=== PATIENT | female | born 1980 | race Caucasian/White ===

== ENCOUNTER 2018-10-18 05:30 | Observation (INO) | payer BC, OTHER ==
[2018-10-17 15:21] LABS: BASOPHILS % 0.6 % (0.0-1.0); EOSINOPHILS # (AUTO) 0.3 (0.0-0.4); HEMOGLOBIN 12.7 g/dL (12.0-16.0); LYMPHOCYTES # (AUTO) 1.6 (1.0-3.2); LYMPHOCYTES % 22.3 % (18.0-39.1); MEAN CORPUSCULAR HGB CONC 32.6 g/dL (31-35); MONOCYTES # (AUTO) 0.8 (0.2-0.8); MONOCYTES % 11.2 % (4.4-11.3); NEUTROPHILS # (AUTO) 4.4 (2.1-6.9); NEUTROPHILS % 61.3 % (38.7-80.0); PLATELET COUNT 272 x10e3/uL (140-360); RED BLOOD COUNT 4.24 x10e6/uL (3.6-5.1); RED CELL DISTRIBUTION WIDTH 13.5 % (11.7-14.4)
[2018-10-17 15:36] LABS: INR 0.92; PROTHROMBIN TIME 12.9 seconds (11.9-14.5)
[2018-10-17 15:37] LABS: PARTIAL THROMBOPLASTIN TIME 31.9 seconds (23.8-35.5)
[2018-10-17 15:45] LABS: ANION GAP 11.9 mmol/L (8-16); BLOOD UREA NITROGEN 12 mg/dL (7-26); BUN/CREATININE RATIO 17 (6-25); CALCIUM 9.1 mg/dL (8.4-10.2); CARBON DIOXIDE 24 mmol/L (22-29); CHLORIDE 105 mmol/L (98-107); CREATININE, SERUM 0.72 mg/dL (0.57-1.11); EST GLOMERULAR FILTRATION RATE > 60 ML/MIN (60-); GLUCOSE 76 mg/dL (74-118); POTASSIUM 3.9 mmol/L (3.5-5.1); SODIUM 137 mmol/L (136-145)
--- NOTE | 2018-10-17 16:14 | Diagnostic Imaging Report ---
EXAMINATION: PA and lateral views of the chest. COMPARISON: None CLINICAL HISTORY: Preadmission radiograph, C-spine herniation DISCUSSION: Lines/tubes: None. Lungs: The lungs are well inflated and clear. No pneumonia or pulmonary edema. Pleura: There is no pleural effusion or pneumothorax. Heart and mediastinum: The cardiomediastinal silhouette is normal. Bones and soft tissues: No acute bony abnormalities. IMPRESSION: No acute cardiopulmonary abnormalities. Signed by: Dr. Diego Hernandez M.D. on 10/17/2018 4:10 PM
[2018-10-18] VITALS (7 sets, daily range): BP systolic 99–111; BP diastolic 62–68
[~2018-10-18] VITALS: Ht 162.6 cm; Wt 74.1 kg
[~2018-10-18 05:30] MED LIST: CARVEDILOL12.5 MG PO; ENTRESTO; NORTRIPTYLINE H10 MG; SUMATRIPTAN SUC25 MG PO
--- OUTSIDE RECORDS SUMMARY | 2018-10-18 05:59 | XMS REPORT | Continuity of Care Document ---
Author Author [facility] Organization [facility] Address Unknown Phone Unavailable Care Team Providers Care Instruction Dean Name Role Phone [employer] Unavailable Unavailable Problems Problem Status Onset Date Classification Date Reported Comments Source Perisigmoiditis (disorder) Resolved 06/28/2016 Problem 04/20/2018 [facility] KUB Active 06/21/2016 [facility] H54.7 - UNSPECIFIED VISUAL LOSS M54.2 - Active 09/02/2015 [facility] KIDNEY STONESKUB W/MAHOGANY Active 07/28/2011 [facility] STONES W/ TOMOS Active 05/11/2011 [facility] INTRACTABLE PAIN, ANOREXIA, NAUSEA Active 04/27/2011 [facility] FLANK PAIN Active 04/27/2011 [facility] INTRACTABLE PAIN, ANOREXIA, NAUSEA, ACUTE HYDRONEPROSIS Active 04/27/2011 [facility] KIDNEY STONEWITH MAHOGANY Active 03/01/2011 [facility] KIDNEY STONEWITH MAHOGANY. Active 03/01/2011 [facility] RENAL COLIC, HYDRONEPHROSIS Active 02/12/2011 [facility] BACK PAIN Active 02/12/2011 [facility] RENAL STONE, LT 592.0/CPT 57442 Active 11/25/2010 [facility] Acute pyelonephritis Active Problem 07/30/2011 [facility] Abdominal bloating (finding) Active Problem 04/20/2018 [facility] Acute pyelonephritis (disorder) Active Problem 04/20/2018 [facility] Anxiety (finding) Active Problem 04/20/2018 [facility] Epilepsy (disorder) Resolved Problem 04/20/2018 [facility] Fatigue (finding) Active Problem 04/20/2018 [facility] Kidney stone (disorder) Resolved Problem 04/20/2018 [facility] Mitral valve prolapse (disorder) Active Problem 04/20/2018 [facility] Depressive disorder (disorder) Active Problem 04/20/2018 [facility] Persistent insomnia (disorder) Active Problem 04/20/2018 [facility] Raynaud's disease (disorder) Active Problem 04/20/2018 [facility] Refractory migraine without aura (disorder) Active Problem 04/20/2018 [facility] 592.0 Active [facility] RENAL Active [facility] PYELONEPHRITIS NOS Active [facility] Medications Medication Details Route Status Patient Instructions Ordering Provider Order Date Source SUMAtriptan 50 mg oral tablet See Instructions, TAKE ONE TABLET BY MOUTH ONCE NEEDED FOR HEADACHE, # 9 tab, 5 Refill(s), Pharmacy: [place] [id number] Active 04/18/2018 [facility] nortriptyline 10 mg oral capsule 10 mg=1 cap, PO, Bedtime, # 90 cap, 3 Refill(s), Pharmacy: [place] [id number] Active 04/18/2018 [facility] carvedilol 12.5 mg oral tablet 12.5 mg=1 tab, PO, BID, 0 Refill(s) Active 04/18/2018 [facility] sacubitril 49 MG / valsartan 51 MG Oral Tablet [Entresto] 1 tab, PO, BID, 0 Refill(s) Active 04/18/2018 [facility] Nexium 40 mg, Route: PO, Daily, Start date: 04/29/11 9:00:00, Duration: 30 day, Stop date: 05/28/11 9:00:00 PO No Longer Active Marline 04/29/2011 [facility] Pepcid 20 mg, 1 tab, Route: PO, Drug form: TAB, Q12H, Start date: 04/28/11 21:00:00, Duration: 30 day, Stop date: 05/28/11 9:00:00 PO No Longer Active Jose 04/29/2011 [facility] gentamicin 120 mg, 3 mL, Route: IVPB, [id number], Start date: 04/28/11 17:00:00, Duration: 30 day, Stop date: 05/28/11 5:00:00 IVPB No Longer Active Jose 04/28/2011 [facility] Pyridium 200 mg, 1 tab, Route: PO, Drug form: TAB, BID- Meals, Start date: 04/28/11 17:00:00, Duration: 30 day, Stop date: 05/28/11 8:00:00 PO No Longer Active Jose 04/28/2011 [facility] docusate sodium 100 mg oral capsule 100 mg, 1 cap, Route: PO, Drug form: CAP, BID, Start date: 04/28/11 17:00:00, Duration: 30 day, Stop date: 05/28/11 9:00:00 PO No Longer Active [facility] 04/28/2011 [facility] Rocephin 1 gm, Route: IVPB, Q24H, Start date: 04/28/11 16:00:00, Duration: 30 day, Stop date: 05/27/11 3:00:00 IVPB No Longer Active [facility] 04/28/2011 [facility] Ditropan 5 mg, 1 tab, Route: PO, Drug form: TAB, Q6H, PRN Spasm, Start date: 04/28/11 15:38:00, Duration: 30 day, Stop date: 05/28/11 15:37:00 PO No Longer Active [facility] 04/28/2011 [facility] D5W 1/2NS + KCL 20mEq/L 1000ml (Premix) 1,000 mL 1,000 mL, Rate: 125 ml/hr, Infuse over: 8 hr, Route: IV, Dosing Weight 63.636 kg, Total Volume: 1,000, Start date: 04/28/11 15:38:00, Duration: 30 day, Stop date: 05/28/11 15:37:00 IV No Longer Active [facility] 04/28/2011 [facility] Benadryl 25 mg, 0.5 mL, Route: IM, Drug form: INJ, Bedtime, PRN Insomnia, Start date: 04/28/11 15:31:00, Duration: 30 day, Stop date: 05/28/11 15:30:00 IM No Longer Active [facility] 04/28/2011 [facility] Benadryl 25 mg, 0.5 mL, Route: IVP, Drug form: INJ, Bedtime, PRN Insomnia, Start date: 04/28/11 15:30:00, Duration: 30 day, Stop date: 05/28/11 15:29:00 IVP No Longer Active [facility] 04/28/2011 [facility] acetaminophen-hydrocodone 325 mg-7.5 mg oral tablet 1 tab, Route: PO, Drug Form: TAB, Q4H, PRN Pain, Start date: 04/28/11 15:29:00, Duration: 30 day, Stop date: 05/28/11 15:28:00 PO No Longer Active Marshall 04/28/2011 [facility] morphine Sulfate 3 mg, 1.5 mL, Route: IV, Drug form: INJ, Q1H, PRN Pain, Start date: 04/28/11 15:29:00, Duration: 30 day, Stop date: 05/28/11 16:28:00 IV No Longer Active [facility] 04/28/2011 [facility] morphine Sulfate 2 mg, 1 mL, Route: IVP, Drug form: INJ, Q1H, PRN Pain, Start date: 04/28/11 15:28:00, Duration: 30 day, Stop date: 05/28/11 16:27:00 IVP No Longer Active [facility] 04/28/2011 [facility] gentamicin 120 mg, 3 mL, Route: IVPB, ONCE, Start date: 04/28/11 11:00:00, Stop date: 04/28/11 11:00:00 IVPB No Longer Active [facility] 04/28/2011 [facility] Lactated Ringers Injection IV IV, 250 ml/hr, ONCE, Start date: 04/28/11 10:17:00, 500 ml IV No Longer Active Marshall 04/28/2011 [facility] NS 1,000 mL 1,000 mL, Rate: 175 ml/hr, Infuse over: 5.7 hr, Route: IV, Dosing Weight 63.636 kg, Total Volume: 1,000, Start date: 04/28/11 10:16:00, Duration: 30 day, Stop date: 05/28/11 10:15:00 IV No Longer Active [facility] 04/28/2011 [facility] Protonix 40 mg, 1 tab, Route: PO, Drug form: ECTAB, Before Dinner, Start date: 04/28/11 9:42:00, Duration: 30 day, Stop date: 05/27/11 16:30:00 PO No Longer Active [facility] 04/28/2011 [facility] Zofran 4 mg, 2 mL, Route: IVP, Drug form: INJ, Q4H, PRN Nausea, Start date: 04/28/11 7:53:00, Duration: 30 day, Stop date: 05/28/11 7:52:00 IVP No Longer Active Marline 04/28/2011 [facility] Dilaudid 2 mg, 1 mL, Route: IVP, Drug form: INJ, Q4H, PRN Pain, Start date: 04/28/11 7:53:00, Duration: 30 day, Stop date: 05/28/11 7:52:00 IVP No Longer Active Marline 04/28/2011 [facility] Levaquin 500 mg, 100 mL, Route: IVPB, Drug form: INJ, [id number], Start date: 04/28/11 5:00:00, Duration: 30 day, Stop date: 05/27/11 5:00:00 IVPB No Longer Active White 04/28/2011 [facility] Sodium Chloride 0.9% IV 1000 mL 1,000 mL 1,000 mL, Rate: 150 ml/hr, Infuse over: 6.7 hr, Route: IV, Total Volume: 1,000, Start date: 04/28/11 4:34:00, Duration: 30 day, Stop date: 05/28/11 4:33:00 IV No Longer Active White 04/28/2011 [facility] morphine Sulfate 2 mg, 1 mL, Route: IVP, Drug form: INJ, Q3H, PRN Pain Score 4-6, Start date: 04/28/11 4:34:00, Duration: 30 day, Stop date: 05/28/11 4:33:00 IVP No Longer Active White 04/28/2011 [facility] ceftriaxone 1 gm, Route: IVPB, ONCE, Priority: STAT, Start date: 04/28/11 1:26:00, Stop date: 04/28/11 1:26:00 IVPB No Longer Active Shoshana 04/28/2011 [facility] Dilaudid 0.5 mg, Route: IV, ONCE, Start date: 04/27/11 21:31:00, Stop date: 04/27/11 21:31:00 IV No Longer Active Sarmad 04/28/2011 [facility] Sodium Chloride 0.9% (Bolus) IV 500 mL 500 mL, Rate: 500 ml/hr, Infuse over: 1 hr, Route: IV, Total Volume: 500, Bolus Dose, Priority: STAT, Start date: 04/27/11 19:47:00, Duration: 1 doses or times, Stop date: 04/27/11 20:46:00 IV No Longer Active [facility] 04/28/2011 [facility] hydromorphone 1 mg, Route: IVP, ONCE, Priority: STAT, Start date: 04/27/11 19:46:00, Stop date: 04/27/11 19:46:00 IVP No Longer Active [facility] 04/28/2011 [facility] Saline Flush 0.9% 5 ml, Route: IVP, Drug Form: INJ, PRN, PRN Line Flush, Start date: 04/27/11 19:43:00, Duration: 24 hr, Stop date: 04/28/11 19:42:00 IVP No Longer Active [facility] 04/28/2011 [facility] Pyridium 200 mg, 1 tab, Route: PO, Drug form: TAB, BID, Start date: 02/12/11 17:00:00, Duration: 30 day, Stop date: 03/14/11 9:00:00 PO No Longer Active [facility] 02/12/2011 [facility] Flomax 0.4 mg oral capsule 0.4 mg, 1 cap, PO, Bedtime, 14 cap, Substitution Allowed PO Active [facility] 02/12/2011 [facility] Pyridium 200 mg oral tablet 200 mg, 1 tab, PO, BID, 8 tab, Substitution Allowed PO Active [facility] 02/12/2011 [facility] Vicodin ES 7.5/750 oral tablet 1-2 tabs, PO, Q4H, PRN, 15 tab, for Pain, Substitution Allowed, Maintenance PO Active [facility] 02/12/2011 [facility] oxybutynin 5 mg oral tablet 5 mg, 1 tab, PO, QID, PRN, 15 tab, as needed for urinary discomfort, Substitution Allowed, TAB PO Active Marshall 02/12/2011 [facility] Cipro 250 mg oral tablet 250 mg, 1 tab, PO, Q12H, 10 tab, Substitution Allowed, TAB PO Active Marshall 02/12/2011 [facility] morphine Sulfate 3 mg, 1.5 mL, Route: IV, Drug form: INJ, Q1H, PRN Pain, Start date: 02/12/11 12:34:00, Duration: 30 day, Stop date: 03/14/11 12:33:00 IV No Longer Active [facility] 02/12/2011 [facility] Zofran 4 mg, 2 mL, Route: IVP, Drug form: INJ, Q4H, PRN Nausea, Start date: 02/12/11 12:33:00, Duration: 30 day, Stop date: 03/14/11 12:32:00 IVP No Longer Active [facility] 02/12/2011 [facility] acetaminophen-hydrocodone 325 mg-7.5 mg oral tablet 2 tab, Route: PO, Drug Form: TAB, Q4H, PRN Pain, Start date: 02/12/11 12:33:00, Duration: 30 day, Stop date: 03/14/11 12:32:00 PO No Longer Active Marshall 02/12/2011 [facility] Lactated Ringers Injection IV 1,000 mL 1,000 mL, Rate: 100 ml/hr, Infuse over: 10 hr, Route: IV, Total Volume: 1,000, Start date: 02/12/11 12:33:00, Duration: 30 day, Stop date: 03/14/11 12:32:00 IV No Longer Active [facility] 02/12/2011 [facility] acetaminophen-hydrocodone 325 mg-5 mg oral tablet 2 tab, Route: PO, Drug Form: TAB, Q4H, PRN Pain, Start date: 02/12/11 12:12:00, Duration: 30 day, Stop date: 03/14/11 12:11:00 PO No Longer Active [facility] 02/12/2011 [facility] acetaminophen-hydrocodone 325 mg-5 mg oral tablet 1 tab, Route: PO, Drug Form: TAB, Q4H, PRN Pain, Start date: 02/12/11 12:11:00, Duration: 30 day, Stop date: 03/14/11 12:10:00 PO No Longer Active [facility] 02/12/2011 [facility] gentamicin 120 mg, Route: IV, ONCE, Start date: 02/12/11 11:42:00, Stop date: 02/12/11 11:42:00 IV No Longer Active [facility] 02/12/2011 [facility] acetaminophen-hydrocodone 500 mg-5 mg oral tablet 2 tab, Route: PO, Drug Form: TAB, Q4H, PRN Pain Score 6-10, Start date: 02/12/11 11:21:00, Duration: 30 day, Stop date: 03/14/11 11:20:00 PO No Longer Active [facility] 02/12/2011 [facility] naloxone 0.04 mg, 0.1 mL, Route: IVP, Drug form: INJ, Q2MIN, PRN Narcotic Reversal, Start date: 02/12/11 11:21:00, Duration: 8 doses or times, Stop date: Limited # of times IVP No Longer Active [facility] 02/12/2011 [facility] morphine Sulfate 2 mg, 1 mL, Route: IVP, Drug form: INJ, Q5Min, PRN Pain Score 4-6, Start date: 02/12/11 11:21:00, Duration: 8 doses or times, Stop date: Limited # of times IVP No Longer Active [facility] 02/12/2011 [facility] hydromorphone 0.5 mg, 0.5 mL, Route: IVP, Drug form: SOLN, Q5Min, PRN Pain Score 4-6, Start date: 02/12/11 11:21:00, Duration: 5 doses or times, Stop date: Limited # of times IVP No Longer Active [facility] 02/12/2011 [facility] fentanyl 25 microgram, 0.5 mL, Route: IVP, Drug form: INJ, Q5Min, PRN Pain Score 4-6, Start date: 02/12/11 11:21:00, Duration: 4 doses or times, Stop date: Limited # of times IVP No Longer Active [facility] 02/12/2011 [facility] flumazenil 0.2 mg, 2 mL, Route: IVP, Drug form: INJ, PRN, PRN Other -See Comment, Initial dose, Start date: 02/12/11 11:21:00, Duration: 30 day, Stop date: 03/14/11 11:20:00 IVP No Longer Active [facility] 02/12/2011 [facility] ondansetron 4 mg, 2 mL, Route: IVP, Drug form: INJ, ONCE, PRN Nausea & Vomiting, Start date: 02/12/11 11:21:00 IVP No Longer Active [facility] 02/12/2011 [facility] ceftriaxone 1 gm, Route: IVPB, ONCE, Priority: STAT, Start date: 02/12/11 8:03:00, Stop date: 02/12/11 8:03:00 IVPB No Longer Active [facility] 02/12/2011 [facility] Saline Flush 0.9% 5 ml, Route: IVP, Drug Form: INJ, PRN, PRN Line Flush, Start date: 02/12/11 8:03:00, Duration: 30 day, Stop date: 03/14/11 8:02:00 IVP No Longer Active [facility] 02/12/2011 [facility] morphine Sulfate 2 mg, 1 mL, Route: IVP, Drug form: INJ, Q3H, PRN Pain Score 4-6, Start date: 02/12/11 8:03:00, Duration: 30 day, Stop date: 03/14/11 8:02:00 IVP No Longer Active [facility] 02/12/2011 [facility] Sodium Chloride 0.45% IV 1,000 mL 1,000 mL 1,000 mL, Rate: 100 ml/hr, Infuse over: 10 hr, Route: IV, Total Volume: 1,000, Start date: 02/12/11 8:03:00, Duration: 30 day, Stop date: 03/14/11 8:02:00 IV No Longer Active [facility] 02/12/2011 [facility] ondansetron 4 mg, 2 mL, Route: IVP, Drug form: INJ, Q6H, PRN Nausea & Vomiting, Start date: 02/12/11 8:03:00, Duration: 30 day, Stop date: 03/14/11 8:02:00 IVP No Longer Active [facility] 02/12/2011 [facility] Rocephin 1 g/ NS (NaCl 0.9%) 50 mL IV solution 1 gm, Route: IVPB, Drug form: PDR/INJ, [id number], Start date: 02/12/11 7:00:00, Duration: 30 day, Stop date: 03/13/11 7:00:00 IVPB No Longer Active [facility] 02/12/2011 [facility] morphine Sulfate 4 mg, 2 mL, Route: IVP, Drug form: INJ, ONCE, Priority: STAT, Start date: 02/12/11 5:49:00, Stop date: 02/12/11 5:49:00 IVP No Longer Active [facility] 02/12/2011 [facility] ceftriaxone 1 gm, Route: IVPB, Drug form: PDR/INJ, ONCE, Priority: STAT, Start date: 02/12/11 5:01:00, Stop date: 02/12/11 5:01:00 IVPB No Longer Active [facility] 02/12/2011 [facility] hydromorphone 1 mg, Route: IVP, ONCE, Priority: STAT, Start date: 02/12/11 4:01:00, Stop date: 02/12/11 4:01:00 IVP No Longer Active [facility] 02/12/2011 [facility] Sodium Chloride 0.9% (Bolus) IV 1000 mL 1,000 mL, Rate: 1,000 ml/hr, Infuse over: 1 hr, Route: IV, Total Volume: 1,000, Bolus Dose, Priority: STAT, Start date: 02/12/11 3:24:00, Duration: 1 doses or times, Stop date: 02/12/11 4:23:00 IV No Longer Active [facility] 02/12/2011 [facility] Saline Flush 0.9% 5 ml, Route: IVP, Drug Form: INJ, PRN, PRN Line Flush, Start date: 02/12/11 3:24:00, Duration: 24 hr, Stop date: 02/13/11 3:23:00 IVP No Longer Active [facility] 02/12/2011 [facility] Zofran 4 mg, Route: IVP, Drug form: INJ, ONCE, Priority: STAT, Start date: 02/12/11 3:24:00, Stop date: 02/12/11 3:24:00 IVP No Longer Active [facility] 02/12/2011 [facility] hydromorphone 1 mg, Route: IVP, ONCE, Priority: STAT, Start date: 02/12/11 3:23:00, Stop date: 02/12/11 3:23:00 IVP No Longer Active [facility] 02/12/2011 [facility] oxybutynin 5 mg oral tablet 5 mg, 1 tab, BID, Substitution Allowed No Longer Active 02/12/2011 [facility] Cipro 500 mg oral tablet 500 mg, 1 tab, PO, BID, 10 tab, Substitution Allowed PO No Longer Active 02/12/2011 [facility] Vicodin ES 7.5/750 oral tablet 1 tab, PO, Q4-6H, PRN, 24 tab, for Pain, Substitution Allowed, Maintenance PO No Longer Active 02/12/2011 [facility] Pyridium 100 mg oral tablet 100 mg, 1 tab, PO, TID, PRN, 6 tab, Dysuria, Substitution Allowed PO No Longer Active 02/12/2011 [facility] Ancef 1 gm, Route: IVPB, ONCALL, Start date: 12/09/10 13:00:00, Duration: 30 day, Stop date: 01/08/11 11:59:00 IVPB No Longer Active [facility] 12/09/2010 [facility] gentamicin 120 mg, 100 mL, Route: IVPB, Drug form: INJ, ONCE, Start date: 12/09/10 12:13:00, Stop date: 12/09/10 12:13:00 IVPB No Longer Active [facility] 12/09/2010 [facility] lidocaine 1% 0.5 mL, Route: SUB-Q, Drug Form: INJ, ONCALL, Start date: 12/09/10 12:00:00, Duration: 1 doses or times SUB-Q No Longer Active [facility] 12/09/2010 [facility] Lactated Ringers Injection IV 1,000 mL 1,000 mL, Rate: 25 ml/hr, Infuse over: 40 hr, Route: IV, Total Volume: 1,000, Start date: 12/09/10 11:48:00, Duration: 30 day, Stop date: 01/08/11 11:47:00 IV No Longer Active [facility] 12/09/2010 [facility] acetaminophen-hydrocodone 500 mg-5 mg oral tablet 1 tab, PO, Daily, PRN, Pain, Substitution Allowed, Maintenance, TAB PO Active 12/02/2010 [facility] Treximet oral tablet 1 tab, PO, PRN, Substitution Allowed, Maintenance, Only taken for migraines., TABOnly taken for migraines. PO Active 12/02/2010 [facility] Allergies, Adverse Reactions, Alerts Substance Category Reaction Severity Reaction type Status Date Reported Comments Source Latex Assertion Drug allergy Active [facility] Immunizations No Data Provided for This Section Results Order Name Results Value Reference Range Date Interpretation Comments Source Microbiology Culture: Urine 04/28/2011 [facility] Microbiology Culture: Urine 04/28/2011 [facility] CHEMISTRY U Preg Negative (04/27/2011 18:50:00) Negative 04/28/2011 Normal [facility] URINALYSIS UA RBC 6-10 /HPF *ABN* (04/27/2011 18:50:00) 0 - 2 04/28/2011 ABN [facility] URINALYSIS UA Bacteria Few /HPF (04/27/2011 18:50:00) None Seen 04/28/2011 Normal [facility] URINALYSIS UA Amorph Haley Many /HPF *ABN* (04/27/2011 18:50:00) None Seen 04/28/2011 ABN [facility] URINALYSIS UA Urobilinogen 0.2 0.1 - 1.0 04/28/2011 [facility] URINALYSIS UA Blood Moderate *ABN* (04/27/2011 18:50:00) Negative 04/28/2011 ABN [facility] URINALYSIS UA Nitrite Negative (04/27/2011 18:50:00) Negative 04/28/2011 [facility] URINALYSIS UA Sq Epi Few /LPF (04/27/2011 18:50:00) Few 04/28/2011 Normal [facility] URINALYSIS UA Leuk Est Negative (04/27/2011 18:50:00) Negative 04/28/2011 Normal [facility] URINALYSIS UA WBC None Seen (04/27/2011 18:50:00) None Seen 04/28/2011 Normal [facility] URINALYSIS UA Ketones Negative *NA* (04/27/2011 18:50:00) Negative 04/28/2011 NA [facility] URINALYSIS UA Bili Negative *NA* (04/27/2011 18:50:00) Negative 04/28/2011 [facility] URINALYSIS UA Protein Negative (04/27/2011 18:50:00) Negative 04/28/2011 Normal [facility] URINALYSIS UA pH 7.5 5.0 - 8.0 04/28/2011 Normal [facility] URINALYSIS UA Glucose Negative (04/27/2011 18:50:00) Negative 04/28/2011 Normal [facility] URINALYSIS UA Turbidity Cloudy *ABN* (04/27/2011 18:50:00) Clear 04/28/2011 [facility]N [facility] URINALYSIS UA Color Yellow *NA* (04/27/2011 18:50:00) Yellow 04/28/2011 NA [facility] URINALYSIS UA Spec Grav 1.015 <=1.030 04/28/2011 Normal [facility] CHEMISTRY Globulin 3.9 2.0 - 4.0 04/27/2011 Normal [facility] CHEMISTRY A/G Ratio 1.1 0.7 - 1.6 04/27/2011 Normal [facility] CHEMISTRY AGAP 12.6 10.0 - 20.0 04/27/2011 Normal [facility] CHEMISTRY B/C Ratio 17 6 - 25 04/27/2011 Normal [facility] CHEMISTRY Total Protein 8.1 6.4 - 8.4 04/27/2011 Normal [facility] CHEMISTRY Albumin Lvl 4.2 3.5 - 5.0 04/27/2011 Normal [facility] CHEMISTRY CO2 25 24 - 32 04/27/2011 Normal [facility] CHEMISTRY Calcium Lvl 8.5 8.5 - 10.5 04/27/2011 Normal [facility] CHEMISTRY ALT 22 0 - 65 04/27/2011 Normal [facility] CHEMISTRY Alk Phos 92 39 - 136 04/27/2011 Normal [facility] CHEMISTRY Sodium Lvl 138 135 - 145 04/27/2011 Normal [facility] CHEMISTRY Potassium Lvl 3.6 3.5 - 5.1 04/27/2011 Normal [facility] CHEMISTRY Creatinine Lvl 0.9 0.5 - 1.4 04/27/2011 Normal [facility] CHEMISTRY Chloride Lvl 104 95 - 109 04/27/2011 Normal [facility] CHEMISTRY Bili Total 0.3 0.2 - 1.3 04/27/2011 Normal [facility] CHEMISTRY AST 16 0 - 37 04/27/2011 Normal [facility] CHEMISTRY Glucose Lvl 124 04/27/2011 NA <sup>1</sup>Interpretive Data: Reference Ranges : 0 - 7 days : 41 - 90 mg/dL 7 days - 150 yrs : 70 - 99 mg/dL (fasting), based on the clinical recommendations of the [employer] [employer]. [facility] CHEMISTRY BUN 15 7 - 22 04/27/2011 Normal [facility] CHEMISTRY Lipase Lvl 184 73 - 393 04/27/2011 Normal [facility] HEMATOLOGY Hct 40.7 36.0 - 48.0 04/27/2011 Normal [facility] HEMATOLOGY RBC 4.59 4.20 - 5.40 04/27/2011 Normal [facility] HEMATOLOGY MCV 88.5 81.0 - 99.0 04/27/2011 Normal [facility] HEMATOLOGY Hgb 13.5 12.0 - 16.0 04/27/2011 Normal [facility] HEMATOLOGY MCHC 33.1 32.0 - 36.0 04/27/2011 Normal [facility] HEMATOLOGY MCH 29.3 27.0 - 31.0 04/27/2011 Normal [facility] HEMATOLOGY RDW 13.7 11.5 - 14.5 04/27/2011 Normal [facility] HEMATOLOGY Platelet 246 133 - 450 04/27/2011 Normal [facility] HEMATOLOGY MPV 10.2 7.4 - 10.4 04/27/2011 Normal [facility] HEMATOLOGY WBC 18.6 3.7 - 10.4 04/27/2011 HI [facility] HEMATOLOGY RBC Morph Normal (04/27/2011 15:45:00) 04/27/2011 Normal [facility] HEMATOLOGY Plt Morph Normal (04/27/2011 15:45:00) 04/27/2011 Normal [facility] HEMATOLOGY Monocytes 4.3 2.0 - 12.0 04/27/2011 Normal [facility] HEMATOLOGY Segs 91.0 45.0 - 75.0 04/27/2011 [facility] HEMATOLOGY Lymphocytes 4.6 20.0 - 40.0 04/27/2011 LOW [facility] HEMATOLOGY Lymphocytes # 0.9 1.0 - 5.5 04/27/2011 LOW [facility] HEMATOLOGY Monocytes # 0.8 0.0 - 0.8 04/27/2011 Normal [facility] HEMATOLOGY Segs-Bands # 16.9 1.5 - 8.1 04/27/2011 [facility] HEMATOLOGY Eosinophils 0.1 0.0 - 4.0 04/27/2011 Normal [facility] HEMATOLOGY Basophils 0.0 0.0 - 1.0 04/27/2011 Normal [facility] HEMATOLOGY Basophils # 0.0 0.0 - 0.2 04/27/2011 Normal [facility] HEMATOLOGY Eosinophils # 0.0 0.0 - 0.5 04/27/2011 Normal [facility] CHEMISTRY U Preg Negative (03/01/2011 15:42:00) Negative 03/01/2011 Normal [facility] CHEMISTRY U Preg Negative (02/12/2011 03:49:00) Negative 02/12/2011 Normal [facility] URINALYSIS UA Nitrite Positive *ABN* (02/12/2011 03:49:00) Negative 02/12/2011 ABN [facility] URINALYSIS UA Leuk Est Trace *ABN* (02/12/2011 03:49:00) Negative 02/12/2011 ABN [facility] URINALYSIS UA Urobilinogen 1.0 0.1 - 1.0 02/12/2011 Normal [facility] URINALYSIS UA Blood Large *ABN* (02/12/2011 03:49:00) Negative 02/12/2011 ABN [facility] URINALYSIS UA Bili Negative (02/12/2011 03:49:00) Negative 02/12/2011 Normal [facility] URINALYSIS UA Protein 100 mg/dL *ABN* (02/12/2011 03:49:00) Negative 02/12/2011 ABN [facility] URINALYSIS UA pH 7.0 5.0 - 8.0 02/12/2011 Normal [facility] URINALYSIS UA Glucose 100 mg/dL *ABN* (02/12/2011 03:49:00) Negative 02/12/2011 [facility] URINALYSIS UA Spec Grav 1.025 <=1.030 02/12/2011 Normal [facility] URINALYSIS UA Ketones Negative *NA* (02/12/2011 03:49:00) Negative 02/12/2011 NA [facility] URINALYSIS UA Turbidity Turbid *ABN* (02/12/2011 03:49:00) Clear 02/12/2011 ABN [facility] URINALYSIS UA Color Yellow *NA* (02/12/2011 03:49:00) Yellow 02/12/2011 NA [facility] URINALYSIS UA Bacteria Few /HPF (02/12/2011 03:49:00) None Seen 02/12/2011 Normal [facility] URINALYSIS UA RBC >100 /HPF *ABN* (02/12/2011 03:49:00) 0 - 2 02/12/2011 ABN [facility] URINALYSIS UA WBC 3-5 /HPF (02/12/2011 03:49:00) None Seen 02/12/2011 Normal [facility] URINALYSIS UA Sq Epi Few /LPF (02/12/2011 03:49:00) Few 02/12/2011 Normal [facility] URINALYSIS Micro? Performed (02/12/2011 03:49:00) 02/12/2011 Normal [facility] Microbiology Culture: Urine 02/12/2011 [facility] CHEMISTRY AST 17 0 - 37 02/12/2011 Normal [facility] CHEMISTRY Bili Total 0.3 0.2 - 1.3 02/12/2011 Normal [facility] CHEMISTRY Alk Phos 76 39 - 136 02/12/2011 Normal [facility] CHEMISTRY ALT 24 0 - 65 02/12/2011 Normal [facility] CHEMISTRY Albumin Lvl 3.8 3.5 - 5.0 02/12/2011 Normal [facility] CHEMISTRY Calcium Lvl 8.6 8.5 - 10.5 02/12/2011 Normal [facility] CHEMISTRY Chloride Lvl 102 95 - 109 02/12/2011 Normal [facility] CHEMISTRY Total Protein 7.5 6.4 - 8.4 02/12/2011 Normal [facility] CHEMISTRY CO2 24 24 - 32 02/12/2011 Normal [facility] CHEMISTRY Sodium Lvl 138 135 - 145 02/12/2011 Normal [facility] CHEMISTRY Potassium Lvl 3.7 3.5 - 5.1 02/12/2011 Normal [facility] CHEMISTRY Creatinine Lvl 0.7 0.5 - 1.4 02/12/2011 Normal [facility] CHEMISTRY BUN 10 7 - 22 02/12/2011 Normal [facility] CHEMISTRY Glucose Lvl 119 02/12/2011 NA <sup>1</sup>Interpretive Data: Reference Ranges : 0 - 7 days : 41 - 90 mg/dL 7 days - 150 yrs : 70 - 99 mg/dL (fasting), based on the clinical recommendations of the [place] [employer]. [facility] CHEMISTRY Globulin 3.7 2.0 - 4.0 02/12/2011 Normal [facility] CHEMISTRY AGAP 15.7 10.0 - 20.0 02/12/2011 Normal [facility] CHEMISTRY A/G Ratio 1.0 0.7 - 1.6 02/12/2011 Normal [facility] CHEMISTRY B/C Ratio 14 6 - 25 02/12/2011 Normal [facility] CHEMISTRY Lipase Lvl 135 73 - 393 02/12/2011 Normal [facility] HEMATOLOGY Lymphocytes 13.6 20.0 - 40.0 02/12/2011 LOW [facility] HEMATOLOGY Segs 76.2 45.0 - 75.0 02/12/2011 HI [facility] HEMATOLOGY Monocytes 8.3 2.0 - 12.0 02/12/2011 Normal [facility] HEMATOLOGY Basophils # 0.0 0.0 - 0.2 02/12/2011 Normal [facility] HEMATOLOGY Eosinophils 1.5 0.0 - 4.0 02/12/2011 Normal [facility] HEMATOLOGY Basophils 0.4 0.0 - 1.0 02/12/2011 Normal [facility] HEMATOLOGY Segs-Bands # 9.6 1.5 - 8.1 02/12/2011 [facility] HEMATOLOGY Lymphocytes # 1.7 1.0 - 5.5 02/12/2011 Normal [facility] HEMATOLOGY Monocytes # 1.0 0.0 - 0.8 02/12/2011 HI [facility] HEMATOLOGY Eosinophils # 0.2 0.0 - 0.5 02/12/2011 Normal [facility] HEMATOLOGY MCH 30.2 27.0 - 31.0 02/12/2011 Normal [facility] HEMATOLOGY MCHC 34.7 32.0 - 36.0 02/12/2011 Normal [facility] HEMATOLOGY RDW 13.8 11.5 - 14.5 02/12/2011 Normal [facility] HEMATOLOGY Platelet 242 133 - 450 02/12/2011 Normal [facility] HEMATOLOGY MPV 10.2 7.4 - 10.4 02/12/2011 Normal [facility] HEMATOLOGY Hgb 13.2 12.0 - 16.0 02/12/2011 Normal [facility] HEMATOLOGY Hct 38.1 36.0 - 48.0 02/12/2011 Normal [facility] HEMATOLOGY MCV 87.1 81.0 - 99.0 02/12/2011 Normal [facility] HEMATOLOGY WBC 12.6 3.7 - 10.4 02/12/2011 HI [facility] HEMATOLOGY RBC 4.38 4.20 - 5.40 02/12/2011 Normal [facility] CHEMISTRY U Preg Negative (12/09/2010 05:30:00) ?? >Negative 12/09/2010 Normal [facility] CHEMISTRY S Preg Negative *NA* (12/02/2010 11:20:00) ?? >Negative 12/02/2010 NA [facility] CHEMISTRY AGAP 11.3 10.0 - 20.0 12/02/2010 Normal [facility] CHEMISTRY Calcium Lvl 8.8 8.5 - 10.5 12/02/2010 Normal [facility] CHEMISTRY CO2 28.0 24 - 32 12/02/2010 Normal [facility] CHEMISTRY Glucose Lvl 42.0 12/02/2010 NA <sup>1</sup>Interpretive Data: Reference Ranges : 0 - 7 days : 41 - 90 mg/dL 7 days - 150 yrs : 70 - 99 mg/dL (fasting), based on the clinical recommendations of the [place] [employer]. [facility] CHEMISTRY Potassium Lvl 4.3 3.5 - 5.1 12/02/2010 Normal [facility] CHEMISTRY Chloride Lvl 103.0 95 - 109 12/02/2010 Normal [facility] CHEMISTRY BUN 18.0 7 - 22 12/02/2010 Normal [facility] CHEMISTRY Creatinine Lvl 0.7 0.5 - 1.4 12/02/2010 Normal [facility] CHEMISTRY Sodium Lvl 138.0 135 - 145 12/02/2010 Normal [facility] HEMATOLOGY PT 13.2 12.0 - 14.7 12/02/2010 Normal [facility] HEMATOLOGY INR 1.0 0.85 - 1.17 12/02/2010 Normal <sup>2</sup>Interpretive Data: RECOMMENDED RANGES FOR PROTIME INR: 2.0-3.0 for most medical and surgical thromboembolic states. 2.5-3.5 for artificial heart valves and recurrent embolism. INR SHOULD BE USED ONLY FOR PATIENTS ON STABLE ANTICOAGULANT THERAPY. [facility] HEMATOLOGY PTT 31.6 22.9 - 35.8 12/02/2010 Normal <sup>3</sup>Interpretive Data: Heparin Therapeutic Range: 57 - 92 Seconds [facility] HEMATOLOGY WBC 6.0 3.7 - 10.4 12/02/2010 Normal [facility] HEMATOLOGY MPV 10.6 7.4 - 10.4 12/02/2010 HI [facility] HEMATOLOGY MCH 30.0 27.0 - 31.0 12/02/2010 Normal [facility] HEMATOLOGY MCHC 34.5 32.0 - 36.0 12/02/2010 Normal [facility] HEMATOLOGY Platelet 249.0 133 - 450 12/02/2010 Normal [facility] HEMATOLOGY RDW 13.5 11.5 - 14.5 12/02/2010 Normal [facility] HEMATOLOGY Hgb 13.9 12.0 - 16.0 12/02/2010 Normal [facility] HEMATOLOGY RBC 4.62 4.20 - 5.40 12/02/2010 Normal [facility] HEMATOLOGY Hct 40.2 36.0 - 48.0 12/02/2010 Normal [facility] HEMATOLOGY MCV 87.0 81.0 - 99.0 12/02/2010 Normal [facility] HEMATOLOGY Eosinophils # 0.2 0.0 - 0.5 12/02/2010 Normal [facility] HEMATOLOGY Basophils # 0.1 0.0 - 0.2 12/02/2010 Normal [facility] HEMATOLOGY Monocytes # 0.6 0.0 - 0.8 12/02/2010 Normal [facility] HEMATOLOGY Lymphocytes # 1.5 1.0 - 5.5 12/02/2010 Normal [facility] HEMATOLOGY Segs-Bands # 3.7 1.5 - 8.1 12/02/2010 Normal [facility] HEMATOLOGY Monocytes 10.8 2.0 - 12.0 12/02/2010 Normal [facility] HEMATOLOGY Segs 61.5 45.0 - 75.0 12/02/2010 Normal [facility] HEMATOLOGY Basophils 0.9 0.0 - 1.0 12/02/2010 Normal [facility] HEMATOLOGY Lymphocytes 24.2 20.0 - 40.0 12/02/2010 Normal [facility] HEMATOLOGY Eosinophils 2.6 0.0 - 4.0 12/02/2010 Normal [facility] URINALYSIS UA RBC None Seen (12/02/2010 11:05:00) ?? >0 - 2 12/02/2010 Normal [facility] URINALYSIS UA Bacteria Few /HPF (12/02/2010 11:05:00) ?? >None Seen 12/02/2010 Normal [facility] URINALYSIS UA WBC None Seen (12/02/2010 11:05:00) ?? >None Seen 12/02/2010 Normal [facility] URINALYSIS UA Sq Epi Occasional /LPF (12/02/2010 11:05:00) ?? >Few 12/02/2010 Normal [facility] URINALYSIS Micro? Performed (12/02/2010 11:05:00) ?? 12/02/2010 Normal [facility] URINALYSIS UA Leuk Est Negative (12/02/2010 11:05:00) ?? >Negative 12/02/2010 Normal [facility] URINALYSIS UA Nitrite Negative (12/02/2010 11:05:00) ?? >Negative 12/02/2010 Normal [facility] URINALYSIS UA Urobilinogen 0.2 0.1 - 1.0 12/02/2010 Normal [facility] URINALYSIS UA Blood Negative (12/02/2010 11:05:00) ?? >Negative 12/02/2010 Normal [facility] URINALYSIS UA Ketones Negative mg/dL *NA* (12/02/2010 11:05:00) ?? >Negative 12/02/2010 NA [facility] URINALYSIS UA Glucose Negative mg/dL (12/02/2010 11:05:00) ?? >Negative 12/02/2010 Normal [facility] URINALYSIS UA Bili Negative *NA* (12/02/2010 11:05:00) ?? >Negative 12/02/2010 NA [facility] URINALYSIS UA Spec Grav 1.02 <<=1.030 12/02/2010 Normal [facility] URINALYSIS UA Protein Negative mg/dL (12/02/2010 11:05:00) ?? >Negative 12/02/2010 Normal [facility] URINALYSIS UA pH 6.5 5.0 - 8.0 12/02/2010 Normal [facility] URINALYSIS UA Turbidity Clear (12/02/2010 11:05:00) ?? >Clear 12/02/2010 Normal [facility] URINALYSIS UA Color Yellow *NA* (12/02/2010 11:05:00) ?? >Yellow 12/02/2010 NA [facility] Microbiology Culture: Urine 12/02/2010 [facility] Pathology Reports No Data Provided for This Section Diagnostic Reports Report Value Date Source Abdomen AP DX KUB: 2 linear calculi measuring 8 mm and 5 mm are noted overlying the lower pole the left kidney. There is no other visible urinary tract calculus. Multiple phleboliths in the pelvis are noted. Surgical clips in the gallbladder region are noted. Intrauterine device is noted in the midline which appears horizontally oriented. [id number] 06/21/2016 [facility] Spine cervical wo contrast MRI CERVICAL SPINE MRI WITHOUT CONTRAST: 09/11/2015 TECHNIQUE: Sagittal T1 and T2 weighted images were followed by axial T2-weighted views of the cervical spine without IV contrast. FINDINGS: The cervical cord is normal in size and signal intensity. There is no syrinx. The cerebellar tonsils are normal in position above the level of the foramen magnum. The vertebrae are normal in shape, signal intensity and alignment, other than slight straightening of the cervical spine curvature. The intervertebral disks are desiccated with mild height loss at C5-C6. The prevertebral soft tissues are normal. C2-C3: No abnormality. C3-C4: Minimal disc osteophyte complex. No significant stenosis. C4-C5: No abnormality. C5-C6: Left paracentral disc extrusion measures 4 mm anterior posteriorly and extends up to 3 mm below the level of the disc with superimposed mild diffuse disc osteophyte complexes and minimal annular tearing. This results in [id number] left canal stenosis (AP diameter 8 mm) with moderate left lateral recess narrowing and mild left greater than right neural foraminal narrowing. There is slight contact to the left anterior cord and minimal deformity to the left C6 nerve root. C6-C7: Minimal disc bulge. No significant stenosis. C7-T1: No abnormality. IMPRESSION: Moderate C5-C6 disc extrusion with superimposed disc osteophyte complexes resulting in [id number] left canal stenosis and minimal deformity of the left C6 nerve root in the lateral recess and foramen. 09/11/2015 [facility] Brain wo contrast MRI MRI BRAIN WITHOUT CONTRAST: 09/11/2015 COMPARISON: None. CLINICAL: H54.7 Unspecified visual loss COMMENTS: The volume of the brain is age-appropriate. No evidence of significant white matter changes, hydrocephalus, acute infarct, intracranial hemorrhage, mass, or midline shift is seen. The brainstem and cerebellum are free of signal abnormality. There is no evidence of diffusion restriction. Flow voids at the base of the brain are preserved. The orbits are grossly unremarkable, though no dedicated high-resolution imaging was obtained. The paranasal sinuses and mastoid air cells are well aerated, except for probable mucus retention cyst in the right maxillary sinus. Mild leftward nasal septal deviation and spurring contacts and remodels the left inferior turbinate, which is potential source of headaches in some patients.. IMPRESSION: No acute intracranial abnormality. 09/11/2015 [facility] Consultation Notes No Data Provided for This Section Discharge Summaries No Data Provided for This Section History and Physicals No Data Provided for This Section Vital Signs Vital Sign Value Date Comments Source Weight 69.602 04/18/2018 [facility] BMI Calculated 26.34 04/18/2018 [facility] Height 162.56 cm 04/18/2018 [facility] Systolic (mm Hg) 114 04/18/2018 [facility] Diastolic (mm Hg) 77 04/18/2018 [facility] Heart Rate 80 04/18/2018 [facility] Systolic (mm Hg) 132 04/28/2011 [facility] Diastolic (mm Hg) 85 04/28/2011 [facility] Heart Rate 87 04/28/2011 [facility] Respitory Rate 18 04/28/2011 [facility] Temperature Oral (F) 97.5 F 04/28/2011 [facility] Systolic (mm Hg) 136 04/28/2011 [facility] Diastolic (mm Hg) 86 04/28/2011 [facility] Respitory Rate 18 04/28/2011 [facility] Diastolic (mm Hg) 91 04/28/2011 [facility] Systolic (mm Hg) 136 04/28/2011 [facility] Respitory Rate 14 04/28/2011 [facility] Heart Rate 80 04/28/2011 [facility] Temperature Oral (F) 98.0 F 04/28/2011 [facility] Heart Rate 79 04/28/2011 [facility] Temperature Oral (F) 98.3 F 04/28/2011 [facility] Height 162.56 cm 04/28/2011 [facility] Weight 63.636 04/28/2011 [facility] Heart Rate 75 02/12/2011 [facility] Diastolic (mm Hg) 83 02/12/2011 [facility] Systolic (mm Hg) 129 02/12/2011 [facility] Respitory Rate 20 02/12/2011 [facility] Temperature Oral (F) 98.5 F 02/12/2011 [facility] Temperature Oral (F) 98.1 F 02/12/2011 [facility] Systolic (mm Hg) 142 02/12/2011 [facility] Respitory Rate 20 02/12/2011 [facility] Diastolic (mm Hg) 92 02/12/2011 [facility] Heart Rate 84 02/12/2011 [facility] Systolic (mm Hg) 130 02/12/2011 [facility] Respitory Rate 13 02/12/2011 [facility] Diastolic (mm Hg) 71 02/12/2011 [facility] Heart Rate 74 02/12/2011 [facility] Temperature Oral (F) 98.0 F 02/12/2011 [facility] Weight 59.091 02/12/2011 [facility] Height 162.56 cm 02/12/2011 [facility] Respitory Rate 16.0 12/09/2010 [facility] Diastolic (mm Hg) 64.0 12/09/2010 [facility] Systolic (mm Hg) 122.0 12/09/2010 [facility] Diastolic (mm Hg) 75.0 12/09/2010 [facility] Systolic (mm Hg) 120.0 12/09/2010 [facility] Respitory Rate 19.0 12/09/2010 [facility] Respitory Rate 18.0 12/09/2010 [facility] Diastolic (mm Hg) 67.0 12/09/2010 [facility] Systolic (mm Hg) 115.0 12/09/2010 [facility] Heart Rate 86.0 12/09/2010 [facility] Temperature Oral (F) 97.8 F 12/02/2010 [facility] Heart Rate 88.0 12/02/2010 [facility] Weight 63.636 12/02/2010 [facility] Height 162.56 cm 12/02/2010 [facility] Encounters Location Location Details Encounter Type Encounter Number Reason For Visit Attending Provider ADM Date DC Date Status Source [facility] DS [id number] RENAL STONE, LT 592.0/CPT 45404 SHAN COTTOEN 12/09/2010 12/09/2010 Active [facility] OU [id number] RENAL COLIC, HYDRONEPHROSIS JUAN A JOSE 02/12/2011 02/12/2011 Active [facility] Outpatient [id number] RENAL JUAN A JOSE 03/01/2011 Active [facility] Outpatient [id number] KIDNEY STONEWITH MAHOGANY. JUAN A JOSE 03/16/2011 03/16/2011 Active [facility] Inpatient [id number] INTRACTABLE PAIN, ANOREXIA, NAUSEA, ACUTE HYDRONEPROSIS LAURA ÁLVAREZ 04/28/2011 04/28/2011 Active [facility] Outpatient [id number] 592.0 JUAN A SHERIDAN 05/11/2011 Active [facility] Outpatient [id number] STONES W/ TOMOS JUAN A SHERIDAN 07/28/2011 Active [facility] [id number] Belkis Kofarida 09/11/2015 09/12/2015 [facility] Outpatient [id number] EDEL DION 04/12/2016 Active [facility] Outpatient [id number] Juan A Jose 06/21/2016 06/22/2016 [facility] Outpatient [id number] EDEL DION 06/28/2016 Active [facility] Outpatient [id number] EDEL DION 11/24/2016 Active [facility] Outpatient [id number] EDEL DION 05/25/2017 Active [facility] Pre-Reg [id number] Edel [place] 05/25/2017 05/25/2017 [facility] Outpatient [id number] EDEL DION 04/18/2018 [facility] Outpatient [id number] Edel Dion 04/18/2018 04/19/2018 [facility] Outpatient [id number] EDEL DION 04/19/2019 [facility] Outpatient [id number] KIDNEY STONESKUB W/MAHOGANY JUAN A JOSE Cancel [facility] Procedures Procedure Code Date Perfomer Comments Source Open stone operation on kidney or renal pelvis [id number] 02/21/2008 [facility] Assessment and Plan No Data Provided for This Section Plan of Care No Data Provided for This Section Social History Social History Date Source Social History TypeResponse Substance Abuse Use: None. Employment/School Status: Employed. Highest education level: High school. Alcohol Never Smoking Status Never smoker; Exposure to Tobacco Smoke None; Cigarette Smoking Last 365 Days No; Reg Smoking Cessation Counseling No entered on: 04/18/18 11/24/2016 [facility] Social History TypeResponse Employment/School Status: Employed. Highest education level: High school. Alcohol Never Smoking Status Never smoker; Exposure to Tobacco Smoke None; Cigarette Smoking Last 365 Days No; Reg Smoking Cessation Counseling No 06/07/2016 [facility] No data available for this section 09/12/2015 [facility] Family History No Data Provided for This Section Advance Directives No Data Provided for This Section Functional Status No Data Provided for This Section
--- OUTSIDE RECORDS SUMMARY | 2018-10-18 05:59 | XMS REPORT | CCD ---
Author Author Auto Generated Organization [facility] Address Unknown Phone Unavailable Care Team Providers Care Project Geophysicist Name Role Phone PhilJaylen em CP Unavailable HernandezBhanuh RP Natalya Fong CP Lissette Reyes CP [phone] Jose Sanya Herson CP Majo Ross CP [phone] Placido Johnston CP [phone] Arielle Garibay CP [phone] [employer], Login CP Unavailable Inez Richter CP Unavailable HernandezTammie Juan A CP [phone] Cindy Gonsalez CP Unavailable Tila Edgar CP Unavailable Scott Simpson CP SYSTEM, SYSTEM CP Unavailable Ryan Oliva CP Unavailable El Bess CP Monica Daigle CP Unavailable Tiff Michel CP Unavailable Josie Escobedo CP [phone] Love Hennessy CP Lynette Wong CP Allergies, Adverse Reactions, Alerts Substance Reaction Status Latex ?? Active NKDA Latex?? Canceled Medications Medication Instructions Start Date End Date Status gentamicin 120 mg, 100 mL, Route: IVPB, Drug 12/09/2010 12/09/2010 Completed form: INJ, ONCE, Start date: 12/09/10 12:13:00, Stop date: 12/09/10 12:13:00 Ancef 1 gm, Route: IVPB, ONCALL, Start 12/09/2010 12/09/2010 Completed date: 12/09/10 13:00:00, Duration: 30 day, Stop date: 01/08/11 11:59:00 acetaminophen-hydroc 1 tab, PO, Daily, PRN, Pain, 12/02/2010 ?? Ordered odone 500 mg-5 mg Substitution Allowed, Maintenance, oral tablet TAB Treximet oral tablet 1 tab, PO, PRN, Substitution 12/02/2010 ?? Ordered Allowed, Maintenance, Only taken for migraines., TAB Only taken for migraines. lidocaine 1% 0.5 mL, Route: SUB-Q, Drug Form: 12/09/2010 12/09/2010 Discontinued INJ ONCALL, Start date: 12/09/10 12:00:00, Duration: 1 doses or times Lactated Ringers 1,000 mL, Rate: 25 ml/hr, Infuse 12/09/2010 12/09/2010 Discontinued Injection IV 1,000 over: 40 hr, Route: IV, Total mL Volume: 1,000, Start date: 12/09/10 11:48:00, Duration: 30 day, Stop date: 01/08/11 11:47:00 Vital Signs Most recent to oldest [Reference Range]: 1 2 3 Height 162.56 cm (12/02/2010 10:07:00) ? Temperature Oral [96.4-99.1 DegF] 97.8 DegF (12/02/2010 11:00:00) ? Systolic Blood Pressure [90-140 mmHg] 122 mmHg (12/09/2010 15:00:00) ?? 120 mmHg (12/09/2010 14:30:00) ?? 115 mmHg (12/09/2010 14:15:00) ?? Diastolic Blood Pressure [60-90 mmHg] 64 mmHg (12/09/2010 15:00:00) ?? 75 mmHg (12/09/2010 14:30:00) ?? 67 mmHg (12/09/2010 14:15:00) ?? Respiratory Rate [14-20 BRMIN] 16 BRMIN (12/09/2010 15:00:00) ?? 19 BRMIN (12/09/2010 14:30:00) ?? 18 BRMIN (12/09/2010 14:15:00) ?? Peripheral Pulse Rate [60-100 bpm] 86 bpm (12/09/2010 12:14:00) ?? 88 bpm (12/02/2010 11:00:00) ? Weight 63.636 kg (12/02/2010 10:07:00) ? Results URINALYSIS Most recent to oldest [Reference Range]: 1 UA Turbidity [>Clear] Clear (12/02/2010 11:05:00) ?? UA Color [>Yellow] Yellow *NA* (12/02/2010 11:05:00) ?? UA pH [5.0-8.0] 6.5 (12/02/2010 11:05:00) ?? UA Spec Grav [<<=1.030] 1.020 (12/02/2010 11:05:00) ?? UA Glucose [>Negative mg/dL] Negative mg/dL (12/02/2010 11:05:00) ?? UA Blood [>Negative] Negative (12/02/2010 11:05:00) ?? UA Ketones [>Negative mg/dL] Negative mg/dL *NA* (12/02/2010 11:05:00) ?? UA Protein [>Negative mg/dL] Negative mg/dL (12/02/2010 11:05:00) ?? UA Urobilinogen [0.1-1.0 EU/dL] 0.2 EU/dL (12/02/2010 11:05:00) ?? UA Bili [>Negative] Negative *NA* (12/02/2010 11:05:00) ?? UA Leuk Est [>Negative] Negative (12/02/2010 11:05:00) ?? UA Nitrite [>Negative] Negative (12/02/2010 11:05:00) ?? UA WBC [>None Seen] None Seen (12/02/2010 11:05:00) ?? UA RBC [>0-2] None Seen (12/02/2010 11:05:00) ?? UA Bacteria [>None Seen /HPF] Few /HPF (12/02/2010 11:05:00) ?? UA Sq Epi [>Few /LPF] Occasional /LPF (12/02/2010 11:05:00) ?? Micro? Performed (12/02/2010 11:05:00) ?? CHEMISTRY Most recent to oldest [Reference Range]: 1 Sodium Lvl [135-145 mEq/L] 138 mEq/L (12/02/2010 11:20:00) ?? Potassium Lvl [3.5-5.1 mEq/L] 4.3 mEq/L (12/02/2010 11:20:00) ?? Chloride Lvl [95-109 mEq/L] 103 mEq/L (12/02/2010 11:20:00) ?? CO2 [24-32 mEq/L] 28 mEq/L (12/02/2010 11:20:00) ?? AGAP [10.0-20.0 mEq/L] 11.3 mEq/L (12/02/2010 11:20:00) ?? Creatinine Lvl [0.5-1.4 mg/dL] 0.7 mg/dL (12/02/2010 11:20:00) ?? BUN [7-22 mg/dL] 18 mg/dL (12/02/2010 11:20:00) ?? Glucose Lvl 42 mg/dL 1 *NA* (12/02/2010 11:20:00) ?? Calcium Lvl [8.5-10.5 mg/dL] 8.8 mg/dL (12/02/2010 11:20:00) ?? S Preg [>Negative] Negative *NA* (12/02/2010 11:20:00) ?? U Preg [>Negative] Negative (12/09/2010 05:30:00) ?? 1Interpretive Data: Reference Ranges : 0 - 7 days : 41 - 90 mg/dL7 days - 150 yrs : 70 - 99 mg/dL (fasting), based on the clinical recommendations of the [place] [employer]. HEMATOLOGY Most recent to oldest [Reference Range]: 1 WBC [3.7-10.4 K/CMM] 6.0 K/CMM (12/02/2010 11:20:00) ?? RBC [4.20-5.40 M/CMM] 4.62 M/CMM (12/02/2010 11:20:00) ?? Hgb [12.0-16.0 g/dL] 13.9 g/dL (12/02/2010:) ?? Hct [36.0-48.0 %] 40.2 % (12/02/2010:20:) ?? MCV [81.0-99.0 fL] 87.0 fL (12/02/2010:20:) ?? MCH [27.0-31.0 pg] 30.0 pg (12/02/2010:20:) ?? MCHC [32.0-36.0 g/dL] 34.5 g/dL (12/02/2010:20:) ?? RDW [11.5-14.5 %] 13.5 % (12/02/2010:20:) ?? Platelet [133-450 K/CMM] 249 K/CMM (12/02/2010:20:) ?? MPV [7.4-10.4 fL] 10.6 fL *HI* (12/02/2010:20:) ?? Segs [45.0-75.0 %] 61.5 % (12/02/2010:20:) ?? Lymphocytes [20.0-40.0 %] 24.2 % (12/02/2010:20:) ?? Monocytes [2.0-12.0 %] 10.8 % (12/02/2010:20:) ?? Eosinophils [0.0-4.0 %] 2.6 % (12/02/2010:20:) ?? Basophils [0.0-1.0 %] 0.9 % (12/02/2010:20:) ?? Segs-Bands # [1.5-8.1 K/CMM] 3.7 K/CMM (12/02/2010:20:) ?? Lymphocytes # [1.0-5.5 K/CMM] 1.5 K/CMM (12/02/2010:20:) ?? Monocytes # [0.0-0.8 K/CMM] 0.6 K/CMM (12/02/2010:20:) ?? Eosinophils # [0.0-0.5 K/CMM] 0.2 K/CMM (12/02/2010 11:20:00) ?? Basophils # [0.0-0.2 K/CMM] 0.1 K/CMM (12/02/2010 11:20:00) ?? PT [12.0-14.7 seconds] 13.2 seconds (12/02/2010 11:20:00) ?? INR [0.85-1.17] 1.00 2 (12/02/2010 11:20:00) ?? PTT [22.9-35.8 seconds] 31.6 seconds 3 (12/02/2010 11:20:00) ?? 2Interpretive Data: RECOMMENDED RANGES FOR PROTIME INR: 2.0-3.0 for most medical and surgical thromboembolic states. 2.5-3.5 for artificial heart valves and recurrent embolism.INR SHOULD BE USED ONLY FOR PATIENTS ON STABLE ANTICOAGULANT THERAPY. 3Interpretive Data: Heparin Therapeutic Range: 57 - 92 Seconds Microbiology Reports PROCEDURE:Culture: Urine STATUS: Auth (Verified) BODY SITE: ?? COLLECTED DATE/TIME: 12/02/2010 11:05:00 SOURCE: Urine, Clean Catch FREE TEXT SOURCE: ?? FINAL REPORTS Final Report 3 Or More Organisms Present. Gram Positive Organisms Only. Dulzura Count Not Sign ificant PRELIMINARY REPORTS Preliminary Report No Growth; Holding
--- OUTSIDE RECORDS SUMMARY | 2018-10-18 06:00 | XMS REPORT | CCD ---
Author Author Auto Generated Organization [facility] Address Unknown Phone Unavailable Care Team Providers Care Swing Manager Name Role Phone Sanya Garcia CP Allergies, Adverse Reactions, Alerts Substance Reaction Status Latex Active NKDA Latex Canceled Medications Medication Instructions Start Date End Date Status Cipro 250 mg oral 250 mg, 1 tab, PO, Q12H, 10 tab, 02/12/2011 02/17/2011 Ordered tablet Substitution Allowed, TAB ceftriaxone 1 gm, Route: IVPB, ONCE, Priority: 02/12/2011 02/12/2011 Completed STAT, Start date: 02/12/11 8:03:00, Stop date: 02/12/11 8:03:00 Pyridium 200 mg, 1 tab, Route: PO, Drug 02/12/2011 02/12/2011 Discontinued form: TAB, BID, Start date: 02/12/11 17:00:00, Duration: 30 day, Stop date: 03/14/11 9:00:00 Zofran 4 mg, 2 mL, Route: IVP, Drug form: 02/12/2011 02/12/2011 Discontinued INJ, Q4H, PRN Nausea, Start date: 02/12/11 12:33:00, Duration: 30 day, Stop date: 03/14/11 12:32:00 Saline Flush 0.9% 5 ml, Route: IVP, Drug Form: INJ, 02/12/2011 02/12/2011 Discontinued PRN, PRN Line Flush, Start date: 02/12/11 8:03:00, Duration: 30 day, Stop date: 03/14/11 8:02:00 acetaminophen-hydroc 2 tab, Route: PO, Drug Form: TAB, 02/12/2011 02/12/2011 Discontinued odone 325 mg-7.5 mg Q4H, PRN Pain, Start date: 02/12/11 oral tablet 12:33:00, Duration: 30 day, Stop date: 03/14/11 12:32:00 acetaminophen-hydroc 1 tab, Route: PO, Drug Form: TAB, 02/12/2011 02/12/2011 Discontinued odone 325 mg-7.5 mg Q4H, PRN Pain, Start date: 02/12/11 oral tablet 12:33:00, Duration: 30 day, Stop date: 03/14/11 12:32:00 Lactated Ringers 1,000 mL, Rate: 100 ml/hr, Infuse 02/12/2011 02/12/2011 Discontinued Injection IV 1,000 over: 10 hr, Route: IV, Total mL Volume: 1,000, Start date: 02/12/11 12:33:00, Duration: 30 day, Stop date: 03/14/11 12:32:00 Flomax 0.4 mg oral 0.4 mg, 1 cap, PO, Bedtime, 14 cap, 02/12/2011 Ordered capsule Substitution Allowed morphine Sulfate 2 mg, 1 mL, Route: IVP, Drug form: 02/12/2011 02/12/2011 Discontinued INJ, Q3H, PRN Pain Score 4-6, Start date: 02/12/11 8:03:00, Duration: 30 day, Stop date: 03/14/11 8:02:00 Sodium Chloride 1,000 mL, Rate: 100 ml/hr, Infuse 02/12/2011 02/12/2011 Discontinued 0.45% IV 1,000 mL over: 10 hr, Route: IV, Total 1,000 mL Volume: 1,000, Start date: 02/12/11 8:03:00, Duration: 30 day, Stop date: 03/14/11 8:02:00 ondansetron 4 mg, 2 mL, Route: IVP, Drug form: 02/12/2011 02/12/2011 Discontinued INJ, Q6H, PRN Nausea & Vomiting, Start date: 02/12/11 8:03:00, Duration: 30 day, Stop date: 03/14/11 8:02:00 Pyridium 200 mg oral 200 mg, 1 tab, PO, BID, 8 tab, 02/12/2011 Ordered tablet Substitution Allowed Vicodin ES 7.5/750 1-2 tabs, PO, Q4H, PRN, 15 tab, for 02/12/2011 02/17/2011 Ordered oral tablet Pain, Substitution Allowed, Maintenance Sodium Chloride 0.9% 1,000 mL, Rate: 1,000 ml/hr, Infuse 02/12/2011 02/12/2011 Completed (Bolus) IV 1000 mL over: 1 hr, Route: IV, Total Volume: 1,000, Bolus Dose, Priority: STAT, Start date: 02/12/11 3:24:00, Duration: 1 doses or times, Stop date: 02/12/11 4:23:00 Saline Flush 0.9% 5 ml, Route: IVP, Drug Form: INJ, 02/12/2011 02/12/2011 Discontinued PRN, PRN Line Flush, Start date: 02/12/11 3:24:00, Duration: 24 hr, Stop date: 02/13/11 3:23:00 hydromorphone 1 mg, Route: IVP, ONCE, Priority: 02/12/2011 02/12/2011 Completed STAT, Start date: 02/12/11 3:23:00, Stop date: 02/12/11 3:23:00 acetaminophen-hydroc 2 tab, Route: PO, Drug Form: TAB, 02/12/2011 02/12/2011 Discontinued odone 325 mg-5 mg Q4H, PRN Pain, Start date: 02/12/11 oral tablet 12:12:00, Duration: 30 day, Stop date: 03/14/11 12:11:00 Zofran 4 mg, Route: IVP, Drug form: INJ, 02/12/2011 02/12/2011 Completed ONCE, Priority: STAT, Start date: 02/12/11 3:24:00, Stop date: 02/12/11 3:24:00 acetaminophen-hydroc 1 tab, Route: PO, Drug Form: TAB, 02/12/2011 02/12/2011 Discontinued odone 325 mg-5 mg Q4H, PRN Pain, Start date: 02/12/11 oral tablet 12:11:00, Duration: 30 day, Stop date: 03/14/11 12:10:00 oxybutynin 5 mg oral 5 mg, 1 tab, PO, QID, PRN, 15 tab, 02/12/2011 Ordered tablet as needed for urinary discomfort, Substitution Allowed, TAB Rocephin 1 g/ NS 1 gm, Route: IVPB, Drug form: 02/12/2011 02/12/2011 Discontinued (NaCl 0.9%) 50 mL IV PDR/INJ, [id number], Start date: solution 02/12/11 7:00:00, Duration: 30 day, Stop date: 03/13/11 7:00:00 hydromorphone 1 mg, Route: IVP, ONCE, Priority: 02/12/2011 02/12/2011 Completed STAT, Start date: 02/12/11 4:01:00, Stop date: 02/12/11 4:01:00 gentamicin 120 mg, Route: IV, ONCE, Start 02/12/2011 02/12/2011 Completed date: 02/12/11 11:42:00, Stop date: 02/12/11 11:42:00 acetaminophen-hydroc 2 tab, Route: PO, Drug Form: TAB, 02/12/2011 02/12/2011 Deleted odone 500 mg-5 mg Q4H, PRN Pain Score 6-10, Start oral tablet date: 02/12/11 11:21:00, Duration: 30 day, Stop date: 03/14/11 11:20:00 acetaminophen-hydroc 1 tab, Route: PO, Drug Form: TAB, 02/12/2011 02/12/2011 Deleted odone 500 mg-5 mg Q4H, PRN Pain Score 1-5, Start oral tablet date: 02/12/11 11:21:00, Duration: 30 day, Stop date: 03/14/11 11:20:00 naloxone 0.04 mg, 0.1 mL, Route: IVP, Drug 02/12/2011 02/12/2011 Discontinued form: INJ, Q2MIN, PRN Narcotic Reversal, Start date: 02/12/11 11:21:00, Duration: 8 doses or times, Stop date: Limited # of times morphine Sulfate 2 mg, 1 mL, Route: IVP, Drug form: 02/12/2011 02/12/2011 Discontinued INJ, Q5Min, PRN Pain Score 4-6, Start date: 02/12/11 11:21:00, Duration: 8 doses or times, Stop date: Limited # of times hydromorphone 0.5 mg, 0.5 mL, Route: IVP, Drug 02/12/2011 02/12/2011 Discontinued form: SOLN, Q5Min, PRN Pain Score 4-6, Start date: 02/12/11 11:21:00, Duration: 5 doses or times, Stop date: Limited # of times fentanyl 25 microgram, 0.5 mL, Route: IVP, 02/12/2011 02/12/2011 Discontinued Drug form: INJ, Q5Min, PRN Pain Score 4-6, Start date: 02/12/11 11:21:00, Duration: 4 doses or times, Stop date: Limited # of times flumazenil 0.2 mg, 2 mL, Route: IVP, Drug 02/12/2011 02/12/2011 Discontinued form: INJ, PRN, PRN Other -See Comment, Initial dose, Start date: 02/12/11 11:21:00, Duration: 30 day, Stop date: 03/14/11 11:20:00 ondansetron 4 mg, 2 mL, Route: IVP, Drug form: 02/12/2011 02/12/2011 Discontinued INJ, ONCE, PRN Nausea & Vomiting, Start date: 02/12/11 11:21:00 oxybutynin 5 mg oral 5 mg, 1 tab, BID, Substitution 02/12/2011 02/12/2011 Discontinued tablet Allowed Cipro 500 mg oral 500 mg, 1 tab, PO, BID, 10 tab, 02/12/2011 02/12/2011 Discontinued tablet Substitution Allowed Pyridium 100 mg oral 100 mg, 1 tab, PO, TID, PRN, 6 tab, 02/12/2011 02/12/2011 Discontinued tablet Dysuria, Substitution Allowed Vicodin ES 7.5/750 1 tab, PO, Q4-6H, PRN, 24 tab, for 02/12/2011 02/12/2011 Discontinued oral tablet Pain, Substitution Allowed, Maintenance ceftriaxone 1 gm, Route: IVPB, Drug form: 02/12/2011 02/12/2011 Completed PDR/INJ, ONCE, Priority: STAT, Start date: 02/12/11 5:01:00, Stop date: 02/12/11 5:01:00 morphine Sulfate 4 mg, 2 mL, Route: IVP, Drug form: 02/12/2011 02/12/2011 Completed INJ, ONCE, Priority: STAT, Start date: 02/12/11 5:49:00, Stop date: 02/12/11 5:49:00 morphine Sulfate 3 mg, 1.5 mL, Route: IV, Drug form: 02/12/2011 02/12/2011 Discontinued INJ, Q1H, PRN Pain, Start date: 02/12/11 12:34:00, Duration: 30 day, Stop date: 03/14/11 12:33:00 morphine Sulfate 2 mg, 1 mL, Route: IV, Drug form: 02/12/2011 02/12/2011 Discontinued INJ, Q1H, PRN Pain, Start date: 02/12/11 12:34:00, Duration: 30 day, Stop date: 03/14/11 12:33:00 Vital Signs Most recent to oldest [Reference Range]: 1 2 3 Height 162.56 cm (02/12/2011 03:00:00) Temperature Oral [96.4-99.1 DegF] 98.5 DegF (02/12/2011 16:00:00) 98.1 DegF (02/12/2011 13:15:00) 98.0 DegF (02/12/2011 08:00:00) Systolic Blood Pressure [90-140 mmHg] 129 mmHg (02/12/2011 16:00:00) 142 mmHg *HI* (02/12/2011 13:15:00) 130 mmHg (02/12/2011 12:45:00) Diastolic Blood Pressure [60-90 mmHg] 83 mmHg (02/12/2011 16:00:00) 92 mmHg *HI* (02/12/2011 13:15:00) 71 mmHg (02/12/2011 12:45:00) Respiratory Rate [14-20 BRMIN] 20 BRMIN (02/12/2011 16:00:00) 20 BRMIN (02/12/2011 13:15:00) 13 BRMIN *LOW* (02/12/2011 12:45:00) Peripheral Pulse Rate [60-100 bpm] 75 bpm (02/12/2011 16:00:00) 84 bpm (02/12/2011 13:15:00) 74 bpm (02/12/2011 08:00:00) Weight 59.091 kg (02/12/2011 03:00:00) Results URINALYSIS Most recent to oldest [Reference Range]: 1 UA Turbidity [Clear] Turbid *ABN* (02/12/2011 03:49:00) UA Color [Yellow] Yellow *NA* (02/12/2011 03:49:00) UA pH [5.0-8.0] 7.0 (02/12/2011 03:49:00) UA Spec Grav [<=1.030] 1.025 (02/12/2011 03:49:00) UA Glucose [Negative mg/dL] 100 mg/dL *ABN* (02/12/2011 03:49:00) UA Blood [Negative] Large *ABN* (02/12/2011 03:49:00) UA Ketones [Negative] Negative *NA* (02/12/2011 03:49:00) UA Protein [Negative mg/dL] 100 mg/dL *ABN* (02/12/2011 03:49:00) UA Urobilinogen [0.1-1.0 EU/dL] 1.0 EU/dL (02/12/2011 03:49:00) UA Bili [Negative] Negative (02/12/2011 03:49:00) UA Leuk Est [Negative] Trace *ABN* (02/12/2011 03:49:00) UA Nitrite [Negative] Positive *ABN* (02/12/2011 03:49:00) UA WBC [None Seen /HPF] 3-5 /HPF (02/12/2011 03:49:00) UA RBC [0-2 /HPF] >100 /HPF *ABN* (02/12/2011 03:49:00) UA Bacteria [None Seen /HPF] Few /HPF (02/12/2011 03:49:00) UA Sq Epi [Few /LPF] Few /LPF (02/12/2011 03:49:00) Micro? Performed (02/12/2011 03:49:00) CHEMISTRY Most recent to oldest [Reference Range]: 1 Sodium Lvl [135-145 mEq/L] 138 mEq/L (02/12/2011 03:12:00) Potassium Lvl [3.5-5.1 mEq/L] 3.7 mEq/L (02/12/2011 03:12:00) Chloride Lvl [95-109 mEq/L] 102 mEq/L (02/12/2011 03:12:00) CO2 [24-32 mEq/L] 24 mEq/L (02/12/2011 03:12:00) AGAP [10.0-20.0 mEq/L] 15.7 mEq/L (02/12/2011 03:12:00) Creatinine Lvl [0.5-1.4 mg/dL] 0.7 mg/dL (02/12/2011 03:12:00) BUN [7-22 mg/dL] 10 mg/dL (02/12/2011 03:12:00) B/C Ratio [6-25] 14 (02/12/2011 03:12:00) Glucose Lvl 119 mg/dL 1 *NA* (02/12/2011 03:12:00) Total Protein [6.4-8.4 g/dL] 7.5 g/dL (02/12/2011 03:12:00) Albumin Lvl [3.5-5.0 g/dL] 3.8 g/dL (02/12/2011 03:12:00) Globulin [2.0-4.0 g/dL] 3.7 g/dL (02/12/2011 03:12:00) A/G Ratio [0.7-1.6] 1.0 (02/12/2011 03:12:00) Calcium Lvl [8.5-10.5 mg/dL] 8.6 mg/dL (02/12/2011 03:12:00) ALT [0-65 U/L] 24 U/L (02/12/2011 03:12:00) AST [0-37 U/L] 17 U/L (02/12/2011 03:12:00) Alk Phos [39-136 U/L] 76 U/L (02/12/2011 03:12:00) Bili Total [0.2-1.3 mg/dL] 0.3 mg/dL (02/12/2011 03:12:00) Lipase Lvl [73-393 U/L] 135 U/L (02/12/2011 03:12:00) U Preg [Negative] Negative (02/12/2011 03:49:00) 1Interpretive Data: Reference Ranges : 0 - 7 days : 41 - 90 mg/dL7 days - 150 yrs : 70 - 99 mg/dL (fasting), based on the clinical recommendations of the [place] [employer]. HEMATOLOGY Most recent to oldest [Reference Range]: 1 WBC [3.7-10.4 K/CMM] 12.6 K/CMM *HI* (02/12/2011 03:12:00) RBC [4.20-5.40 M/CMM] 4.38 M/CMM (02/12/2011 03:12:00) Hgb [12.0-16.0 g/dL] 13.2 g/dL (02/12/2011 03:12:00) Hct [36.0-48.0 %] 38.1 % (02/12/2011 03:12:00) MCV [81.0-99.0 fL] 87.1 fL (02/12/2011 03:12:00) MCH [27.0-31.0 pg] 30.2 pg (02/12/2011 03:12:00) MCHC [32.0-36.0 g/dL] 34.7 g/dL (02/12/2011 03:12:00) RDW [11.5-14.5 %] 13.8 % (02/12/2011 03:12:00) Platelet [133-450 K/CMM] 242 K/CMM (02/12/2011 03:12:00) MPV [7.4-10.4 fL] 10.2 fL (02/12/2011 03:12:00) Segs [45.0-75.0 %] 76.2 % *HI* (02/12/2011:12:00) Lymphocytes [20.0-40.0 %] 13.6 % *LOW* (02/12/2011 03:12:00) Monocytes [2.0-12.0 %] 8.3 % (02/12/2011 03:12:00) Eosinophils [0.0-4.0 %] 1.5 % (02/12/2011 03:12:00) Basophils [0.0-1.0 %] 0.4 % (02/12/2011 03:12:00) Segs-Bands # [1.5-8.1 K/CMM] 9.6 K/CMM *HI* (02/12/2011 03:12:00) Lymphocytes # [1.0-5.5 K/CMM] 1.7 K/CMM (02/12/2011 03:12:00) Monocytes # [0.0-0.8 K/CMM] 1.0 K/CMM *HI* (02/12/2011 03:12:00) Eosinophils # [0.0-0.5 K/CMM] 0.2 K/CMM (02/12/2011 03:12:00) Basophils # [0.0-0.2 K/CMM] 0.0 K/CMM (02/12/2011 03:12:00) Microbiology Reports PROCEDURE:Culture: Urine STATUS: In Progress BODY SITE: COLLECTED DATE/TIME: 02/12/2011 03:49:00 SOURCE: Urine, Clean Catch FREE TEXT SOURCE: PRELIMINARY REPORTS Preliminary Report No Growth; Holding
--- OUTSIDE RECORDS SUMMARY | 2018-10-18 06:00 | XMS REPORT | CCD ---
Author Author Auto Generated Organization [facility] Address Unknown Phone Unavailable Care Team Providers Care Fan Blade Aligner Name Role Phone JoseSanya Herson RP Allergies, Adverse Reactions, Alerts Substance Reaction Status Latex Active NKDA Latex Canceled Results CHEMISTRY Most recent to oldest [Reference Range]: 1 U Preg [Negative] Negative (03/01/2011 15:42:00)
--- OUTSIDE RECORDS SUMMARY | 2018-10-18 06:00 | XMS REPORT | Summary of Care ---
Author Author [facility] Organization [facility] acute hospital Address Unknown Phone Unavailable Encounter HQ Angelesr_bryant(FIN) [id number] Date(s): 05/25/17 - 05/25/17 [facility] [address] [place] [phone] Attending Physician: Alfonso Hong MD Vital Signs No data available for this section Problem List Condition Effective Dates Status Health Status Informant Bloating(Confirmed) Active Acute Active pyelonephritis(Confi rmed) Anxiety(Confirmed) Active Epilepsy(Confirmed)1 Resolved Fatigue(Confirmed) Active Kidney Resolved stones(Confirmed) Mitral valve Active prolapse(Confirmed) Depression(Confirmed Active ) Perisigmoiditis(Conf < 06/28/16 Resolved irmed) Persistent Active insomnia(Confirmed) Raynaud Active disease(Confirmed) Common migraine with Active intractable migraine(Confirmed) 1Childhood Allergies, Adverse Reactions, Alerts Substance Reaction Severity Status NKDA Latex Active Latex Active Medications No data available for this section Results No data available for this section Immunizations No data available for this section Procedures Procedure Date Related Diagnosis Body Site Status Open stone operation on kidney or renal 2009 Completed pelvis Social History Social History Type Response Substance Abuse Use: None. Employment/School Status: Employed. Highest education level: High school. Alcohol Never Smoking Status Never smoker; Exposure to Tobacco Smoke None; Cigarette Smoking Last 365 Days No; Reg Smoking Cessation Counseling No entered on: 11/24/16 Assessment and Plan No data available for this section
--- OUTSIDE RECORDS SUMMARY | 2018-10-18 06:00 | XMS REPORT ---
Author Author [facility] Address Unknown Phone Unavailable Care Team Providers Care Manager Activities Name Role Phone GAVIN AGUILAR Unavailable Unavailable Problems This patient has no known problems. Allergies, Adverse Reactions, Alerts This patient has no known allergies or adverse reactions. Medications This patient has no known medications. Results Test Description Test Time Test Comments Text Results Atomic Results Result Comments CHEST 2 VIEWS 2018-10-17 16:10:00 [facility] [address] [address] Patient Name: BRENT GROSS MR #: [id number] : 1980 Age/Sex: 38/F Req #: [id number] Adm Physician: Ordered by: GAVIN AGUILAR MD Report #: [id number] Location: OR Room/Bed: Procedure: [id number] DX/CHEST 2 VIEWS Exam Date: 10/17/18 Exam Time: 1532 REPORT STATUS: Signed EXAMINATION: PA and lateral views of the chest. CO MPARISON: None CLINICAL HISTORY: Preadmission radiograph, C-spine herniation DISCUSSION: Lines/tubes: None. Lungs: The lungs are well inflated and clear. No pneumonia or pulmonary edema. Pleura: There is no pleural effusion or pneumothorax. Heart and mediastinum: The cardiomediastinal silhouette is normal. Bones and soft tissues: No acute bony abnormalities. IMPRESSION: No acute cardiopulmonary abnormalities. Signed by: Dr. Rogelio Ovalles M.D. on 10/17/2018 4:10 PM Dictated By: ROGELIO OVALLES MD [id number] Transcribed By: SAIRA on 10/17/18 1610 COPY TO: GAVIN AGUILAR MD
--- OUTSIDE RECORDS SUMMARY | 2018-10-18 06:00 | XMS REPORT | Summary of Care ---
Author Author [facility] [place] Organization [facility] [place] Address Unknown Phone Unavailable Encounter HQ Encntr_alias(FIN) [id number] Date(s): 09/11/15 - 09/11/15 [facility] [place] [address] [place] [phone] Discharge Disposition: Home or Self Care Attending Physician: Belkis Penny MD Vital Signs No data available for this section Problem List Condition Effective Dates Status Health Status Informant Acute Active pyelonephritis(Confi rmed) Allergies, Adverse Reactions, Alerts Substance Reaction Severity Status Latex Active Medications No data available for this section Results No data available for this section Immunizations No data available for this section Procedures No data available for this section Social History No data available for this section Assessment and Plan No data available for this section
--- OUTSIDE RECORDS SUMMARY | 2018-10-18 06:00 | XMS REPORT | CCD ---
Author Author Auto Generated Organization [facility] Address Unknown Phone Unavailable Care Team Providers Care Csr Retail Name Role Phone Ciaran Horan CP Allergies, Adverse Reactions, Alerts Substance Reaction Status Latex Active NKDA Latex Canceled Problem List Condition Effective Dates Status Acute pyelonephritis Active Medications Medication Instructions Start Date End Date Status Benadryl 25 mg, 0.5 mL, Route: IM, Drug 04/28/2011 04/28/2011 Discontinued form: INJ, Bedtime, PRN Insomnia, Start date: 04/28/11 15:31:00, Duration: 30 day, Stop date: 05/28/11 15:30:00 Ditropan 5 mg, 1 tab, Route: PO, Drug form: 04/28/2011 04/28/2011 Discontinued TAB, Q6H, PRN Spasm, Start date: 04/28/11 15:38:00, Duration: 30 day, Stop date: 05/28/11 15:37:00 Levaquin 500 mg, 100 mL, Route: IVPB, Drug 04/28/2011 04/28/2011 Discontinued form: INJ, [id number], Start date: 04/28/11 5:00:00, Duration: 30 day, Stop date: 05/27/11 5:00:00 Nexium 40 mg, Route: PO, Daily, Start 04/29/2011 04/28/2011 Deleted date: 04/29/11 9:00:00, Duration: 30 day, Stop date: 05/28/11 9:00:00 Sodium Chloride 0.9% 1,000 mL, Rate: 150 ml/hr, Infuse 04/28/2011 04/28/2011 Discontinued IV 1000 mL 1,000 mL over: 6.7 hr, Route: IV, Total Volume: 1,000, Start date: 04/28/11 4:34:00, Duration: 30 day, Stop date: 05/28/11 4:33:00 ceftriaxone 1 gm, Route: IVPB, ONCE, Priority: 04/28/2011 04/28/2011 Completed STAT, Start date: 04/28/11 1:26:00, Stop date: 04/28/11 1:26:00 Zofran 4 mg, 2 mL, Route: IVP, Drug form: 04/28/2011 04/28/2011 Discontinued INJ, Q4H, PRN Nausea, Start date: 04/28/11 7:53:00, Duration: 30 day, Stop date: 05/28/11 7:52:00 Dilaudid 2 mg, 1 mL, Route: IVP, Drug form: 04/28/2011 04/28/2011 Discontinued INJ, Q4H, PRN Pain, Start date: 04/28/11 7:53:00, Duration: 30 day, Stop date: 05/28/11 7:52:00 hydromorphone 1 mg, Route: IVP, ONCE, Priority: 04/27/2011 04/27/2011 Completed STAT, Start date: 04/27/11 19:46:00, Stop date: 04/27/11 19:46:00 morphine Sulfate 2 mg, 1 mL, Route: IVP, Drug form: 04/28/2011 04/28/2011 Discontinued INJ, Q3H, PRN Pain Score 4-6, Start date: 04/28/11 4:34:00, Duration: 30 day, Stop date: 05/28/11 4:33:00 Lactated Ringers IV, 250 ml/hr, ONCE, Start date: 04/28/2011 04/28/2011 Completed Injection IV 04/28/11 10:17:00, 500 ml gentamicin 120 mg, 3 mL, Route: IVPB, ONCE, 04/28/2011 04/28/2011 Completed Start date: 04/28/11 11:00:00, Stop date: 04/28/11 11:00:00 Benadryl 25 mg, 0.5 mL, Route: IVP, Drug 04/28/2011 04/28/2011 Discontinued form: INJ, Bedtime, PRN Insomnia, Start date: 04/28/11 15:30:00, Duration: 30 day, Stop date: 05/28/11 15:29:00 NS 1,000 mL 1,000 mL, Rate: 175 ml/hr, Infuse 04/28/2011 04/28/2011 Discontinued over: 5.7 hr, Route: IV, Dosing Weight 63.636 kg, Total Volume: 1,000, Start date: 04/28/11 10:16:00, Duration: 30 day, Stop date: 05/28/11 10:15:00 acetaminophen-hydroc 1 tab, Route: PO, Drug Form: TAB, 04/28/2011 04/28/2011 Discontinued odone 325 mg-7.5 mg Q4H, PRN Pain, Start date: 04/28/11 oral tablet 15:29:00, Duration: 30 day, Stop date: 05/28/11 15:28:00 acetaminophen-hydroc 2 tab, Route: PO, Drug Form: TAB, 04/28/2011 04/28/2011 Discontinued odone 325 mg-7.5 mg Q4H, PRN Pain, Start date: 04/28/11 oral tablet 15:29:00, Duration: 30 day, Stop date: 05/28/11 15:28:00 morphine Sulfate 3 mg, 1.5 mL, Route: IV, Drug form: 04/28/2011 04/28/2011 Discontinued INJ, Q1H, PRN Pain, Start date: 04/28/11 15:29:00, Duration: 30 day, Stop date: 05/28/11 16:28:00 morphine Sulfate 2 mg, 1 mL, Route: IVP, Drug form: 04/28/2011 04/28/2011 Discontinued INJ, Q1H, PRN Pain, Start date: 04/28/11 15:28:00, Duration: 30 day, Stop date: 05/28/11 16:27:00 Dilaudid 0.5 mg, Route: IV, ONCE, Start 04/27/2011 04/27/2011 Completed date: 04/27/11 21:31:00, Stop date: 04/27/11 21:31:00 gentamicin 120 mg, 3 mL, Route: IVPB, [id number], 04/28/2011 04/28/2011 Discontinued Start date: 04/28/11 17:00:00, Duration: 30 day, Stop date: 05/28/11 5:00:00 Saline Flush 0.9% 5 ml, Route: IVP, Drug Form: INJ, 04/27/2011 04/28/2011 Discontinued PRN, PRN Line Flush, Start date: 04/27/11 19:43:00, Duration: 24 hr, Stop date: 04/28/11 19:42:00 Rocephin 1 gm, Route: IVPB, Q24H, Start 04/28/2011 04/28/2011 Discontinued date: 04/28/11 16:00:00, Duration: 30 day, Stop date: 05/27/11 3:00:00 Pyridium 200 mg, 1 tab, Route: PO, Drug 04/28/2011 04/28/2011 Discontinued form: TAB, BID-Meals, Start date: 04/28/11 17:00:00, Duration: 30 day, Stop date: 05/28/11 8:00:00 Protonix 40 mg, 1 tab, Route: PO, Drug form: 04/28/2011 04/28/2011 Discontinued ECTAB, Before Dinner, Start date: 04/28/11 9:42:00, Duration: 30 day, Stop date: 05/27/11 16:30:00 docusate sodium 100 100 mg, 1 cap, Route: PO, Drug 04/28/2011 04/28/2011 Discontinued mg oral capsule form: CAP, BID, Start date: 04/28/11 17:00:00, Duration: 30 day, Stop date: 05/28/11 9:00:00 Sodium Chloride 0.9% 500 mL, Rate: 500 ml/hr, Infuse 04/27/2011 04/27/2011 Completed (Bolus) IV 500 mL over: 1 hr, Route: IV, Total Volume: 500, Bolus Dose, Priority: STAT, Start date: 04/27/11 19:47:00, Duration: 1 doses or times, Stop date: 04/27/11 20:46:00 Pepcid 20 mg, 1 tab, Route: PO, Drug form: 04/28/2011 04/28/2011 Canceled TAB, Q12H, Start date: 04/28/11 21:00:00, Duration: 30 day, Stop date: 05/28/11 9:00:00 D5W 1/2NS + KCL 1,000 mL, Rate: 125 ml/hr, Infuse 04/28/2011 04/28/2011 Discontinued 20mEq/L 1000ml over: 8 hr, Route: IV, Dosing (Premix) 1,000 mL Weight 63.636 kg, Total Volume: 1,000, Start date: 04/28/11 15:38:00, Duration: 30 day, Stop date: 05/28/11 15:37:00 Benadryl 25 mg, 1 tab, Route: PO, Drug form: 04/28/2011 04/28/2011 Discontinued TAB, Bedtime, PRN Insomnia, Start date: 04/28/11 15:31:00, Duration: 30 day, Stop date: 05/28/11 15:30:00 Vital Signs Most recent to oldest [Reference Range]: 1 2 3 Height 162.56 cm (04/27/2011 18:46:00) Temperature Oral [96.4-99.1 DegF] 97.5 DegF (04/28/2011 15:00:00) 98.0 DegF (04/28/2011 12:00:00) 98.3 DegF (04/28/2011 10:35:00) Systolic Blood Pressure [90-140 mmHg] 132 mmHg (04/28/2011 15:00:00) 136 mmHg (04/28/2011 14:15:00) 136 mmHg (04/28/2011 14:00:00) Diastolic Blood Pressure [60-90 mmHg] 85 mmHg (04/28/2011 15:00:00) 86 mmHg (04/28/2011 14:15:00) 91 mmHg *HI* (04/28/2011 14:00:00) Respiratory Rate [14-20 BRMIN] 18 BRMIN (04/28/2011 15:00:00) 18 BRMIN (04/28/2011 14:15:00) 14 BRMIN (04/28/2011 14:00:00) Peripheral Pulse Rate [60-100 bpm] 87 bpm (04/28/2011 15:00:00) 80 bpm (04/28/2011 12:00:00) 79 bpm (04/28/2011 10:35:00) Weight 63.636 kg (04/27/2011 18:46:00) Results URINALYSIS Most recent to oldest [Reference Range]: 1 UA Turbidity [Clear] Cloudy *ABN* (04/27/2011 18:50:00) UA Color [Yellow] Yellow *NA* (04/27/2011 18:50:00) UA pH [5.0-8.0] 7.5 (04/27/2011 18:50:00) UA Spec Grav [<=1.030] 1.015 (04/27/2011 18:50:00) UA Glucose [Negative] Negative (04/27/2011 18:50:00) UA Blood [Negative] Moderate *ABN* (04/27/2011 18:50:00) UA Ketones [Negative] Negative *NA* (04/27/2011 18:50:00) UA Protein [Negative] Negative (04/27/2011 18:50:00) UA Urobilinogen [0.1-1.0 EU/dL] 0.2 EU/dL (04/27/2011 18:50:00) UA Bili [Negative] Negative *NA* (04/27/2011 18:50:00) UA Leuk Est [Negative] Negative (04/27/2011 18:50:00) UA Nitrite [Negative] Negative (04/27/2011 18:50:00) UA WBC [None Seen] None Seen (04/27/2011 18:50:00) UA RBC [0-2 /HPF] 6-10 /HPF *ABN* (04/27/2011 18:50:00) UA Bacteria [None Seen /HPF] Few /HPF (04/27/2011 18:50:00) UA Sq Epi [Few /LPF] Few /LPF (04/27/2011 18:50:00) UA Amorph Haley [None Seen /HPF] Many /HPF *ABN* (04/27/2011 18:50:00) CHEMISTRY Most recent to oldest [Reference Range]: 1 Sodium Lvl [135-145 mEq/L] 138 mEq/L (04/27/2011 15:45:00) Potassium Lvl [3.5-5.1 mEq/L] 3.6 mEq/L (04/27/2011 15:45:00) Chloride Lvl [95-109 mEq/L] 104 mEq/L (04/27/2011 15:45:00) CO2 [24-32 mEq/L] 25 mEq/L (04/27/2011 15:45:00) AGAP [10.0-20.0 mEq/L] 12.6 mEq/L (04/27/2011 15:45:00) Creatinine Lvl [0.5-1.4 mg/dL] 0.9 mg/dL (04/27/2011 15:45:00) BUN [7-22 mg/dL] 15 mg/dL (04/27/2011:45:00) B/C Ratio [6-25] 17 (04/27/2011 15:45:00) Glucose Lvl 124 mg/dL 1 *NA* (04/27/2011:45:00) Total Protein [6.4-8.4 g/dL] 8.1 g/dL (04/27/2011:45:00) Albumin Lvl [3.5-5.0 g/dL] 4.2 g/dL (04/27/2011:45:00) Globulin [2.0-4.0 g/dL] 3.9 g/dL (04/27/2011:45:00) A/G Ratio [0.7-1.6] 1.1 (04/27/2011 15:45:00) Calcium Lvl [8.5-10.5 mg/dL] 8.5 mg/dL (04/27/2011 15:45:00) ALT [0-65 U/L] 22 U/L (04/27/2011 15:45:00) AST [0-37 U/L] 16 U/L (04/27/2011:45:00) Alk Phos [39-136 U/L] 92 U/L (04/27/2011 15:45:00) Bili Total [0.2-1.3 mg/dL] 0.3 mg/dL (04/27/2011 15:45:00) Lipase Lvl [73-393 U/L] 184 U/L (04/27/2011 15:45:00) U Preg [Negative] Negative (04/27/2011 18:50:00) 1Interpretive Data: Reference Ranges : 0 - 7 days : 41 - 90 mg/dL7 days - 150 yrs : 70 - 99 mg/dL (fasting), based on the clinical recommendations of the [place] [employer]. HEMATOLOGY Most recent to oldest [Reference Range]: 1 WBC [3.7-10.4 K/CMM] 18.6 K/CMM *HI* (04/27/2011 15:45:00) RBC [4.20-5.40 M/CMM] 4.59 M/CMM (04/27/2011 15:45:00) Hgb [12.0-16.0 g/dL] 13.5 g/dL (04/27/2011 15:45:00) Hct [36.0-48.0 %] 40.7 % (04/27/2011 15:45:00) MCV [81.0-99.0 fL] 88.5 fL (04/27/2011 15:45:00) MCH [27.0-31.0 pg] 29.3 pg (04/27/2011 15:45:00) MCHC [32.0-36.0 g/dL] 33.1 g/dL (04/27/2011 15:45:00) RDW [11.5-14.5 %] 13.7 % (04/27/2011 15:45:00) Platelet [133-450 K/CMM] 246 K/CMM (04/27/2011 15:45:00) MPV [7.4-10.4 fL] 10.2 fL (04/27/2011 15:45:00) Segs [45.0-75.0 %] 91.0 % *HI* (04/27/2011 15:45:00) Lymphocytes [20.0-40.0 %] 4.6 % *LOW* (04/27/2011 15:45:00) Monocytes [2.0-12.0 %] 4.3 % (04/27/2011 15:45:00) Eosinophils [0.0-4.0 %] 0.1 % (04/27/2011 15:45:00) Basophils [0.0-1.0 %] 0.0 % (04/27/2011 15:45:00) Segs-Bands # [1.5-8.1 K/CMM] 16.9 K/CMM *HI* (04/27/2011 15:45:00) Lymphocytes # [1.0-5.5 K/CMM] 0.9 K/CMM *LOW* (04/27/2011 15:45:00) Monocytes # [0.0-0.8 K/CMM] 0.8 K/CMM (04/27/2011 15:45:00) Eosinophils # [0.0-0.5 K/CMM] 0.0 K/CMM (04/27/2011 15:45:00) Basophils # [0.0-0.2 K/CMM] 0.0 K/CMM (04/27/2011 15:45:00) RBC Morph Normal (04/27/2011 15:45:00) Plt Morph Normal (04/27/2011 15:45:00) Microbiology Reports PROCEDURE:Culture: Urine STATUS: In Progress BODY SITE: Urine COLLECTED DATE/TIME: 04/28/2011 13:07:00 SOURCE: Urine, Cystoscopic FREE TEXT SOURCE: PRELIMINARY REPORTS Preliminary Report No Growth; Holding PROCEDURE:Culture: Urine STATUS: In Progress BODY SITE: COLLECTED DATE/TIME: 04/28/2011 06:40:00 SOURCE: Urine, Clean Catch FREE TEXT SOURCE: PRELIMINARY REPORTS Preliminary Report No Growth; Holding
--- OUTSIDE RECORDS SUMMARY | 2018-10-18 06:00 | XMS REPORT | CCD ---
Author Author Auto Generated Organization [facility] Address Unknown Phone Unavailable Care Team Providers Care Labor Representative Name Role Phone Sanya Garcia RP Allergies, Adverse Reactions, Alerts Substance Reaction Status Latex Active NKDA Latex Canceled
--- OUTSIDE RECORDS SUMMARY | 2018-10-18 06:00 | XMS REPORT | Summary of Care ---
Author Author [facility] Organization [facility] Address Unknown Phone Unavailable Encounter HQ Rafaela_bryant(FIN) [id number] Date(s): 05/25/17 - 05/25/17 [facility] [address] [place] [phone] Attending Physician: Alfonso Hong MD Vital Signs [...]
--- OUTSIDE RECORDS SUMMARY | 2018-10-18 06:00 | XMS REPORT | CCD ---
Author Author Auto Generated Organization [facility] Address Unknown Phone Unavailable Care Team Providers Care Medicine Tech Name Role Phone Sanya Garcia CP Allergies, Adverse Reactions, Alerts Substance Reaction Status Latex Active NKDA Latex Canceled Problem List Condition Effective Dates Status Acute pyelonephritis Active
--- OUTSIDE RECORDS SUMMARY | 2018-10-18 06:00 | XMS REPORT | CCD ---
Author Author Auto Generated Organization [facility] Address Unknown Phone Unavailable Care Team Providers Care Consultant Intern Name Role Phone Sanya Garcia RP Allergies, Adverse Reactions, Alerts Substance Reaction Status Latex Active NKDA Latex Canceled Problem List Condition Effective Dates Status Acute pyelonephritis Active
--- OUTSIDE RECORDS SUMMARY | 2018-10-18 06:00 | XMS REPORT | Summary of Care ---
Author Author [facility] Organization [facility] Address Unknown Phone Unavailable Encounter KATHLEEN García(BIANCA) [id number] Date(s): 04/18/18 - 04/18/18 [facility] [address] [place] [phone] Discharge Disposition: Home or Self Care Attending Physician: Alfonso Hong MD Referring Physician: Alfonso Hong MD Vital Signs Most recent to 1 oldest [Reference Range]: Height 162.56 cm (04/18/18 1:34 PM) Blood Pressure 114/77 mmHg [90-140/60-90 mmHg] (04/18/18 1:34 PM) Peripheral Pulse 80 bpm Rate [60-100 bpm] (04/18/18 1:34 PM) Weight 69.602 kg (04/18/18 1:34 PM) Body Mass Index 26.34 m2 (04/18/18 1:34 PM) Problem List Condition Effective Dates Status Health Status Informant Bloating(Confirmed) Active Acute Active pyelonephritis(Confi rmed) Anxiety(Confirmed) Active Epilepsy(Confirmed)1 Resolved Fatigue(Confirmed) Active Kidney Resolved stones(Confirmed) Mitral valve Active prolapse(Confirmed) Depression(Confirmed Active ) Perisigmoiditis(Conf < 06/28/16 Resolved irmed) Persistent Active insomnia(Confirmed) Raynaud Active disease(Confirmed) Common migraine with Active intractable migraine(Confirmed) 1Childhood Allergies, Adverse Reactions, Alerts Substance Reaction Severity Status NKDA Latex Active Latex Active Medications carvedilol 12.5 mg oral tablet 12.5 mg=1 tab, PO, BID, 0 Refill(s) Start Date: 04/18/18 Status: Ordered Entresto 49 mg-51 mg oral tablet 1 tab, PO, BID, 0 Refill(s) Start Date: 04/18/18 Status: Ordered nortriptyline 10 mg oral capsule 10 mg=1 cap, PO, Bedtime, # 90 cap, 3 Refill(s), Pharmacy: [facility] [id number] Start Date: 04/18/18 Stop Date: 04/13/19 Status: Ordered SUMAtriptan 50 mg oral tablet See Instructions, TAKE ONE TABLET BY MOUTH ONCE NEEDED FOR HEADACHE, # 9 tab, 5 Refill(s), Pharmacy: [facility] [id number] Start Date: 04/18/18 Status: Ordered Results No data available for this section [...] Smoking Cessation Counseling No entered on: 04/18/18 Assessment and Plan No data available for this section
--- OUTSIDE RECORDS SUMMARY | 2018-10-18 06:00 | XMS REPORT | Summary of Care ---
Author Author [facility] Organization [facility] Address Unknown Phone Unavailable Encounter HQ Raquel(BIANCA) [id number] Date(s): 06/21/16 - 06/21/16 [facility] [address] [place] [address]- Discharge Disposition: Home or Self Care Attending Physician: Sanya Garcia MD Vital Signs No data available for this section Problem List Condition Effective Dates Status Health Status Informant Acute Active pyelonephritis(Confi rmed) Anxiety(Confirmed) Active Epilepsy(Confirmed)1 Resolved Kidney Resolved stones(Confirmed) Mitral valve Active prolapse(Confirmed) Depression(Confirmed Active ) 1Childhood Allergies, Adverse Reactions, Alerts Substance Reaction Severity Status Latex Active NKDA Latex Active Medications No data available for this section Results No data available for this section Immunizations No data available for this section Procedures Procedure Date Related Diagnosis Body Site Open stone operation on kidney or renal 2009 pelvis Social History Social History Type Response Employment/School Status: Employed. Highest education level: High school. Alcohol Never Smoking Status Never smoker; Exposure to Tobacco Smoke None; Cigarette Smoking Last 365 Days No; Reg Smoking Cessation Counseling No Assessment and Plan No data available for this section
[2018-10-18] MEDS ORDERED: CEFAZOLIN SOD 1 GM/NS 50ML 50 ML IV ONE (06:09)
[2018-10-18] MEDS ORDERED: BUPIVACAINE 0.5%/EPI 30 ML SDV INJ ONE (06:43)
[2018-10-18] MEDS ORDERED: THROMBIN FOR SOLN 5,000 UNIT VIAL ONE (06:44)
[2018-10-18] MEDS ORDERED: BACITRACIN 50,000 UNIT VIAL ONE (06:44)
[2018-10-18] MEDS ORDERED: LIDOCAINE HCL (LTA) 4 ML SOLN ONE (07:22)
[2018-10-18] MEDS ORDERED: IBUPROFEN 800MG/ 250ML 250 ML IV ONE (07:22)
[2018-10-18] MEDS ORDERED: ACETAMINOPHEN 1000 MG/100 ML 100 ML IV ONE (07:22)
[2018-10-18] MEDS ORDERED: ONDANSETRON HCL INJ 2MG/ML 2ML 2 MG/ML VIAL IV PRN (09:15)
[2018-10-18] MEDS ORDERED: ZOLPIDEM TARTRATE 5 MG TAB PO PRN (09:15)
[2018-10-18] MEDS ORDERED: ACETAMINOPHEN 325 MG TAB PO PRN (09:15)
[2018-10-18] MEDS ORDERED: MORPHINE SULFATE 5 MG/ML VIAL IM PRN (09:15)
[2018-10-18] MEDS ORDERED: MAGNESIUM/ALUMINUM/SIMETHICONE 30 ML UDC PO PRN (09:15)
[2018-10-18] MEDS ORDERED: PROMETHAZINE HCL (IM) 25 MG/ML VIAL IM PRN (09:15)
[2018-10-18] MEDS ORDERED: CEPACOL SORE THROAT LOZENGES PO PRN (09:15)
[2018-10-18] MEDS ORDERED: FENTANYL CITRATE/PF 100MCG/2 ML INJ ONE ×2 (09:16→18:59)
--- OUTSIDE RECORDS SUMMARY | 2018-10-18 09:28 | XMS REPORT | Continuity of Care Document ---
Author Author [facility] Organization [facility] Address Unknown Phone Unavailable Care Team Providers Care Shop Service Technician Name Role Phone [employer] Information [employer] Unavailable Unavailable Problems Problem Status Onset Date Classification Date Reported Comments Source Perisigmoiditis (disorder) Resolved 06/28/2016 Problem 04/20/2018 [facility] Neuro KUB Active 06/21/2016 [place] H54.7 - UNSPECIFIED VISUAL LOSS M54.2 - Active 09/02/2015 [facility] [place] KIDNEY STONESKUB W/MAHOGANY Active 07/28/2011 [facility] STONES W/ TOMOS Active 05/11/2011 [facility] INTRACTABLE PAIN, ANOREXIA, NAUSEA Active 04/27/2011 [facility] FLANK PAIN Active 04/27/2011 [facility] INTRACTABLE PAIN, ANOREXIA, NAUSEA, ACUTE HYDRONEPROSIS Active 04/27/2011 [facility] KIDNEY STONEWITH MAHOGANY Active 03/01/2011 [facility] KIDNEY STONEWITH MAHOGANY. Active 03/01/2011 [facility] RENAL COLIC, HYDRONEPHROSIS Active 02/12/2011 [facility] BACK PAIN Active 02/12/2011 [facility] RENAL STONE, LT 592.0/CPT 80620 Active 11/25/2010 [facility] Acute pyelonephritis Active Problem 07/30/2011 [facility] Abdominal bloating (finding) Active Problem 04/20/2018 [facility] Acute pyelonephritis (disorder) Active Problem 04/20/2018 [facility] [place] Anxiety (finding) Active Problem 04/20/2018 [facility] Epilepsy (disorder) Resolved Problem 04/20/2018 [facility] Fatigue (finding) Active Problem 04/20/2018 [facility] Kidney stone (disorder) Resolved Problem 04/20/2018 [facility] Mitral valve prolapse (disorder) Active Problem 04/20/2018 [facility] Depressive disorder (disorder) Active Problem 04/20/2018 [facility] Persistent insomnia (disorder) Active Problem 04/20/2018 [facility] Neuro Raynaud's disease (disorder) Active Problem 04/20/2018 [facility] Refractory migraine without aura (disorder) Active Problem 04/20/2018 [facility] Neuro 592.0 Active [facility] RENAL Active [facility] PYELONEPHRITIS NOS Active [facility] Medications Medication Details Route Status Patient Instructions Ordering Provider Order Date Source SUMAtriptan 50 mg oral tablet See Instructions, TAKE ONE TABLET BY MOUTH ONCE NEEDED FOR HEADACHE, # 9 tab, 5 Refill(s), Pharmacy: [place] [id number] Active 04/18/2018 [facility] nortriptyline 10 mg oral capsule 10 mg=1 cap, PO, Bedtime, # 90 cap, 3 Refill(s), Pharmacy: [place] [id number] Active 04/18/2018 [facility] carvedilol 12.5 mg oral tablet 12.5 mg=1 tab, PO, BID, 0 Refill(s) Active 04/18/2018 [facility] sacubitril 49 MG / valsartan 51 MG Oral Tablet [Entresto] 1 tab, PO, BID, 0 Refill(s) Active 04/18/2018 [facility] Nexium 40 mg, Route: PO, Daily, Start date: 04/29/11 9:00:00, Duration: 30 day, Stop date: 05/28/11 9:00:00 PO No Longer Active [place] 04/29/2011 [facility] Pepcid 20 mg, 1 tab, Route: PO, Drug form: TAB, Q12H, Start date: 04/28/11 21:00:00, Duration: 30 day, Stop date: 05/28/11 9:00:00 PO No Longer Active [place] 04/29/2011 [facility] gentamicin 120 mg, 3 mL, Route: IVPB, [id number], Start date: 04/28/11 17:00:00, Duration: 30 day, Stop date: 05/28/11 5:00:00 IVPB No Longer Active [place] 04/28/2011 [facility] Pyridium 200 mg, 1 tab, Route: PO, Drug form: TAB, BID- Meals, Start date: 04/28/11 17:00:00, Duration: 30 day, Stop date: 05/28/11 8:00:00 PO No Longer Active [place] 04/28/2011 [facility] docusate sodium 100 mg oral capsule 100 mg, 1 cap, Route: PO, Drug form: CAP, BID, Start date: 04/28/11 17:00:00, Duration: 30 day, Stop date: 05/28/11 9:00:00 PO No Longer Active [place] 04/28/2011 [facility] Rocephin 1 gm, Route: IVPB, Q24H, Start date: 04/28/11 16:00:00, Duration: 30 day, Stop date: 05/27/11 3:00:00 IVPB No Longer Active [place] 04/28/2011 [facility] Ditropan 5 mg, 1 tab, Route: PO, Drug form: TAB, Q6H, PRN Spasm, Start date: 04/28/11 15:38:00, Duration: 30 day, Stop date: 05/28/11 15:37:00 PO No Longer Active [place] 04/28/2011 [facility] D5W 1/2NS + KCL 20mEq/L 1000ml (Premix) 1,000 mL 1,000 mL, Rate: 125 ml/hr, Infuse over: 8 hr, Route: IV, Dosing Weight 63.636 kg, Total Volume: 1,000, Start date: 04/28/11 15:38:00, Duration: 30 day, Stop date: 05/28/11 15:37:00 IV No Longer Active [place] 04/28/2011 [facility] Benadryl 25 mg, 0.5 mL, Route: IM, Drug form: INJ, Bedtime, PRN Insomnia, Start date: 04/28/11 15:31:00, Duration: 30 day, Stop date: 05/28/11 15:30:00 IM No Longer Active [place] 04/28/2011 [facility] Benadryl 25 mg, 0.5 mL, Route: IVP, Drug form: INJ, Bedtime, PRN Insomnia, Start date: 04/28/11 15:30:00, Duration: 30 day, Stop date: 05/28/11 15:29:00 IVP No Longer Active [place] 04/28/2011 [facility] acetaminophen-hydrocodone 325 mg-7.5 mg oral tablet 1 tab, Route: PO, Drug Form: TAB, Q4H, PRN Pain, Start date: 04/28/11 15:29:00, Duration: 30 day, Stop date: 05/28/11 15:28:00 PO No Longer Active [place] 04/28/2011 [facility] morphine Sulfate 3 mg, 1.5 mL, Route: IV, Drug form: INJ, Q1H, PRN Pain, Start date: 04/28/11 15:29:00, Duration: 30 day, Stop date: 05/28/11 16:28:00 IV No Longer Active [place] 04/28/2011 [facility] morphine Sulfate 2 mg, 1 mL, Route: IVP, Drug form: INJ, Q1H, PRN Pain, Start date: 04/28/11 15:28:00, Duration: 30 day, Stop date: 05/28/11 16:27:00 IVP No Longer Active [place] 04/28/2011 [facility] gentamicin 120 mg, 3 mL, Route: IVPB, ONCE, Start date: 04/28/11 11:00:00, Stop date: 04/28/11 11:00:00 IVPB No Longer Active [place] 04/28/2011 [facility] Lactated Ringers Injection IV IV, 250 ml/hr, ONCE, Start date: 04/28/11 10:17:00, 500 ml IV No Longer Active [place] 04/28/2011 [facility] NS 1,000 mL 1,000 mL, Rate: 175 ml/hr, Infuse over: 5.7 hr, Route: IV, Dosing Weight 63.636 kg, Total Volume: 1,000, Start date: 04/28/11 10:16:00, Duration: 30 day, Stop date: 05/28/11 10:15:00 IV No Longer Active [place] 04/28/2011 [facility] Protonix 40 mg, 1 tab, Route: PO, Drug form: ECTAB, Before Dinner, Start date: 04/28/11 9:42:00, Duration: 30 day, Stop date: 05/27/11 16:30:00 PO No Longer Active [facility] 04/28/2011 [facility] Zofran 4 mg, 2 mL, Route: IVP, Drug form: INJ, Q4H, PRN Nausea, Start date: 04/28/11 7:53:00, Duration: 30 day, Stop date: 05/28/11 7:52:00 IVP No Longer Active [place] 04/28/2011 [facility] Dilaudid 2 mg, 1 mL, Route: IVP, Drug form: INJ, Q4H, PRN Pain, Start date: 04/28/11 7:53:00, Duration: 30 day, Stop date: 05/28/11 7:52:00 IVP No Longer Active [place] 04/28/2011 [facility] Levaquin 500 mg, 100 mL, Route: IVPB, Drug form: INJ, [id number], Start date: 04/28/11 5:00:00, Duration: 30 day, Stop date: 05/27/11 5:00:00 IVPB No Longer Active [place] 04/28/2011 [facility] Sodium Chloride 0.9% IV 1000 mL 1,000 mL 1,000 mL, Rate: 150 ml/hr, Infuse over: 6.7 hr, Route: IV, Total Volume: 1,000, Start date: 04/28/11 4:34:00, Duration: 30 day, Stop date: 05/28/11 4:33:00 IV No Longer Active [place] 04/28/2011 [facility] morphine Sulfate 2 mg, 1 mL, Route: IVP, Drug form: INJ, Q3H, PRN Pain Score 4-6, Start date: 04/28/11 4:34:00, Duration: 30 day, Stop date: 05/28/11 4:33:00 IVP No Longer Active [place] 04/28/2011 [facility] ceftriaxone 1 gm, Route: IVPB, ONCE, Priority: STAT, Start date: 04/28/11 1:26:00, Stop date: 04/28/11 1:26:00 IVPB No Longer Active [place] 04/28/2011 [facility] Dilaudid 0.5 mg, Route: IV, ONCE, Start date: 04/27/11 21:31:00, Stop date: 04/27/11 21:31:00 IV No Longer Active [place] 04/28/2011 [facility] Sodium Chloride 0.9% (Bolus) IV 500 mL 500 mL, Rate: 500 ml/hr, Infuse over: 1 hr, Route: IV, Total Volume: 500, Bolus Dose, Priority: STAT, Start date: 04/27/11 19:47:00, Duration: 1 doses or times, Stop date: 04/27/11 20:46:00 IV No Longer Active [facility] 04/28/2011 [facility] hydromorphone 1 mg, Route: IVP, ONCE, Priority: STAT, Start date: 04/27/11 19:46:00, Stop date: 04/27/11 19:46:00 IVP No Longer Active [facility] 04/28/2011 [facility] Saline Flush 0.9% 5 ml, Route: IVP, Drug Form: INJ, PRN, PRN Line Flush, Start date: 04/27/11 19:43:00, Duration: 24 hr, Stop date: 04/28/11 19:42:00 IVP No Longer Active [facility] 04/28/2011 [facility] Pyridium 200 mg, 1 tab, Route: PO, Drug form: TAB, BID, Start date: 02/12/11 17:00:00, Duration: 30 day, Stop date: 03/14/11 9:00:00 PO No Longer Active [place] 02/12/2011 [facility] Flomax 0.4 mg oral capsule 0.4 mg, 1 cap, PO, Bedtime, 14 cap, Substitution Allowed PO Active [place] 02/12/2011 [facility] Pyridium 200 mg oral tablet 200 mg, 1 tab, PO, BID, 8 tab, Substitution Allowed PO Active [place] 02/12/2011 [facility] Vicodin ES 7.5/750 oral tablet 1-2 tabs, PO, Q4H, PRN, 15 tab, for Pain, Substitution Allowed, Maintenance PO Active [place] 02/12/2011 [facility] oxybutynin 5 mg oral tablet 5 mg, 1 tab, PO, QID, PRN, 15 tab, as needed for urinary discomfort, Substitution Allowed, TAB PO Active [place] 02/12/2011 [facility] Cipro 250 mg oral tablet 250 mg, 1 tab, PO, Q12H, 10 tab, Substitution Allowed, TAB PO Active [place] 02/12/2011 [facility] morphine Sulfate 3 mg, 1.5 mL, Route: IV, Drug form: INJ, Q1H, PRN Pain, Start date: 02/12/11 12:34:00, Duration: 30 day, Stop date: 03/14/11 12:33:00 IV No Longer Active [place] 02/12/2011 [facility] Zofran 4 mg, 2 mL, Route: IVP, Drug form: INJ, Q4H, PRN Nausea, Start date: 02/12/11 12:33:00, Duration: 30 day, Stop date: 03/14/11 12:32:00 IVP No Longer Active [place] 02/12/2011 [facility] acetaminophen-hydrocodone 325 mg-7.5 mg oral tablet 2 tab, Route: PO, Drug Form: TAB, Q4H, PRN Pain, Start date: 02/12/11 12:33:00, Duration: 30 day, Stop date: 03/14/11 12:32:00 PO No Longer Active [place] 02/12/2011 [facility] Lactated Ringers Injection IV 1,000 mL 1,000 mL, Rate: 100 ml/hr, Infuse over: 10 hr, Route: IV, Total Volume: 1,000, Start date: 02/12/11 12:33:00, Duration: 30 day, Stop date: 03/14/11 12:32:00 IV No Longer Active [place] 02/12/2011 [facility] acetaminophen-hydrocodone 325 mg-5 mg oral tablet 2 tab, Route: PO, Drug Form: TAB, Q4H, PRN Pain, Start date: 02/12/11 12:12:00, Duration: 30 day, Stop date: 03/14/11 12:11:[address] [facility] 02/12/2011 [facility] acetaminophen-hydrocodone 325 mg-5 mg oral tablet 1 tab, Route: PO, Drug Form: TAB, Q4H, PRN Pain, Start date: 02/12/11 12:11:00, Duration: 30 day, Stop date: 03/14/11 12:10:[address] [facility] 02/12/2011 [facility] gentamicin 120 mg, Route: IV, ONCE, Start date: 02/12/11 11:42:00, Stop date: 02/12/11 11:42:00 IV No Longer Active [place] 02/12/2011 [facility] acetaminophen-hydrocodone 500 mg-5 mg oral tablet 2 tab, Route: PO, Drug Form: TAB, Q4H, PRN Pain Score 6-10, Start date: 02/12/11 11:21:00, Duration: 30 day, Stop date: 03/14/11 11:20:[address] [facility] 02/12/2011 [facility] naloxone 0.04 mg, 0.1 mL, Route: IVP, Drug form: INJ, Q2MIN, PRN Narcotic Reversal, Start date: 02/12/11 11:21:00, Duration: 8 doses or times, Stop date: Limited # of times IVP No Longer Active [place] 02/12/2011 [facility] morphine Sulfate 2 mg, 1 mL, Route: IVP, Drug form: INJ, Q5Min, PRN Pain Score 4-6, Start date: 02/12/11 11:21:00, Duration: 8 doses or times, Stop date: Limited # of times IVP No Longer Active [facility] 02/12/2011 [facility] hydromorphone 0.5 mg, 0.5 mL, Route: IVP, Drug form: SOLN, Q5Min, PRN Pain Score 4-6, Start date: 02/12/11 11:21:00, Duration: 5 doses or times, Stop date: Limited # of times IVP No Longer Active [place] 02/12/2011 [facility] fentanyl 25 microgram, 0.5 mL, Route: IVP, Drug form: INJ, Q5Min, PRN Pain Score 4-6, Start date: 02/12/11 11:21:00, Duration: 4 doses or times, Stop date: Limited # of times IVP No Longer Active [place] 02/12/2011 [facility] flumazenil 0.2 mg, 2 mL, Route: IVP, Drug form: INJ, PRN, PRN Other -See Comment, Initial dose, Start date: 02/12/11 11:21:00, Duration: 30 day, Stop date: 03/14/11 11:20:00 IVP No Longer Active [place] 02/12/2011 [facility] ondansetron 4 mg, 2 mL, Route: IVP, Drug form: INJ, ONCE, PRN Nausea & Vomiting, Start date: 02/12/11 11:21:00 IVP No Longer Active [place] 02/12/2011 [facility] ceftriaxone 1 gm, Route: IVPB, ONCE, Priority: STAT, Start date: 02/12/11 8:03:00, Stop date: 02/12/11 8:03:00 IVPB No Longer Active [place] 02/12/2011 [facility] Saline Flush 0.9% 5 ml, Route: IVP, Drug Form: INJ, PRN, PRN Line Flush, Start date: 02/12/11 8:03:00, Duration: 30 day, Stop date: 03/14/11 8:02:00 IVP No Longer Active [place] 02/12/2011 [facility] morphine Sulfate 2 mg, 1 mL, Route: IVP, Drug form: INJ, Q3H, PRN Pain Score 4-6, Start date: 02/12/11 8:03:00, Duration: 30 day, Stop date: 03/14/11 8:02:00 IVP No Longer Active [place] 02/12/2011 [facility] Sodium Chloride 0.45% IV 1,000 mL 1,000 mL 1,000 mL, Rate: 100 ml/hr, Infuse over: 10 hr, Route: IV, Total Volume: 1,000, Start date: 02/12/11 8:03:00, Duration: 30 day, Stop date: 03/14/11 8:02:00 IV No Longer Active [place] 02/12/2011 [facility] ondansetron 4 mg, 2 mL, Route: IVP, Drug form: INJ, Q6H, PRN Nausea & Vomiting, Start date: 02/12/11 8:03:00, Duration: 30 day, Stop date: 03/14/11 8:02:00 IVP No Longer Active [place] 02/12/2011 [facility] Rocephin 1 g/ NS (NaCl 0.9%) 50 mL IV solution 1 gm, Route: IVPB, Drug form: PDR/INJ, [id number], Start date: 02/12/11 7:00:00, Duration: 30 day, Stop date: 03/13/11 7:00:00 IVPB No Longer Active [place] 02/12/2011 [facility] morphine Sulfate 4 mg, 2 mL, Route: IVP, Drug form: INJ, ONCE, Priority: STAT, Start date: 02/12/11 5:49:00, Stop date: 02/12/11 5:49:00 IVP No Longer Active [facility] 02/12/2011 [facility] ceftriaxone 1 gm, Route: IVPB, Drug form: PDR/INJ, ONCE, Priority: STAT, Start date: 02/12/11 5:01:00, Stop date: 02/12/11 5:01:00 IVPB No Longer Active [facility] 02/12/2011 [facility] hydromorphone 1 mg, Route: IVP, ONCE, Priority: STAT, Start date: 02/12/11 4:01:00, Stop date: 02/12/11 4:01:00 IVP No Longer Active [facility] 02/12/2011 [facility] Sodium Chloride 0.9% (Bolus) IV 1000 mL 1,000 mL, Rate: 1,000 ml/hr, Infuse over: 1 hr, Route: IV, Total Volume: 1,000, Bolus Dose, Priority: STAT, Start date: 02/12/11 3:24:00, Duration: 1 doses or times, Stop date: 02/12/11 4:23:00 IV No Longer Active [facility] 02/12/2011 [facility] Saline Flush 0.9% 5 ml, Route: IVP, Drug Form: INJ, PRN, PRN Line Flush, Start date: 02/12/11 3:24:00, Duration: 24 hr, Stop date: 02/13/11 3:23:00 IVP No Longer Active [place] 02/12/2011 [facility] Zofran 4 mg, Route: IVP, Drug form: INJ, ONCE, Priority: STAT, Start date: 02/12/11 3:24:00, Stop date: 02/12/11 3:24:00 IVP No Longer Active [facility] 02/12/2011 [facility] hydromorphone 1 mg, Route: IVP, ONCE, Priority: STAT, Start date: 02/12/11 3:23:00, Stop date: 02/12/11 3:23:00 IVP No Longer Active [facility] 02/12/2011 [facility] oxybutynin 5 mg oral tablet 5 mg, 1 tab, BID, Substitution Allowed No Longer Active 02/12/2011 [facility] Cipro 500 mg oral tablet 500 mg, 1 tab, PO, BID, 10 tab, Substitution Allowed PO No Longer Active 02/12/2011 [facility] Vicodin ES 7.5/750 oral tablet 1 tab, PO, Q4-6H, PRN, 24 tab, for Pain, Substitution Allowed, Maintenance PO No Longer Active 02/12/2011 [facility] Pyridium 100 mg oral tablet 100 mg, 1 tab, PO, TID, PRN, 6 tab, Dysuria, Substitution Allowed PO No Longer Active 02/12/2011 [facility] Ancef 1 gm, Route: IVPB, ONCALL, Start date: 12/09/10 13:00:00, Duration: 30 day, Stop date: 01/08/11 11:59:00 IVPB No Longer Active [place] 12/09/2010 [facility] gentamicin 120 mg, 100 mL, Route: IVPB, Drug form: INJ, ONCE, Start date: 12/09/10 12:13:00, Stop date: 12/09/10 12:13:00 IVPB No Longer Active [place] 12/09/2010 [facility] lidocaine 1% 0.5 mL, Route: SUB-Q, Drug Form: INJ, ONCALL, Start date: 12/09/10 12:00:00, Duration: 1 doses or times SUB-Q No Longer Active [place] 12/09/2010 [facility] Lactated Ringers Injection IV 1,000 mL 1,000 mL, Rate: 25 ml/hr, Infuse over: 40 hr, Route: IV, Total Volume: 1,000, Start date: 12/09/10 11:48:00, Duration: 30 day, Stop date: 01/08/11 11:47:00 IV No Longer Active [place] 12/09/2010 [facility] acetaminophen-hydrocodone 500 mg-5 mg oral tablet 1 tab, PO, Daily, PRN, Pain, Substitution Allowed, Maintenance, TAB PO Active 12/02/2010 [facility] Treximet oral tablet 1 tab, PO, PRN, Substitution Allowed, Maintenance, Only taken for migraines., TABOnly taken for migraines. PO Active 12/02/2010 [facility] Allergies, Adverse Reactions, Alerts Substance Category Reaction Severity Reaction type Status Date Reported Comments Source Latex Assertion Drug allergy Active [facility] Immunizations No Data Provided for This Section Results Order Name Results Value Reference Range Date Interpretation Comments Source Microbiology Culture: Urine 04/28/2011 [facility] Microbiology Culture: Urine 04/28/2011 [facility] CHEMISTRY U Preg Negative (04/27/2011 18:50:00) Negative 04/28/2011 Normal [facility] URINALYSIS UA RBC 6-10 /HPF *ABN* (04/27/2011 18:50:00) 0 - 2 04/28/2011 ABN [facility] URINALYSIS UA Bacteria Few /HPF (04/27/2011 18:50:00) None Seen 04/28/2011 Normal [facility] URINALYSIS UA Amorph Haley Many /HPF *ABN* (04/27/2011 18:50:00) None Seen 04/28/2011 ABN [facility] URINALYSIS UA Urobilinogen 0.2 0.1 - 1.0 04/28/2011 Normal [place] URINALYSIS UA Blood Moderate *ABN* (04/27/2011 18:50:00) Negative 04/28/2011 ABN [facility] URINALYSIS UA Nitrite Negative (04/27/2011 18:50:00) Negative 04/28/2011 Normal [place] URINALYSIS UA Sq Epi Few /LPF (04/27/2011 18:50:00) Few 04/28/2011 Normal [facility] URINALYSIS UA Leuk Est Negative (04/27/2011 18:50:00) Negative 04/28/2011 Normal [facility] URINALYSIS UA WBC None Seen (04/27/2011 18:50:00) None Seen 04/28/2011 Normal [facility] URINALYSIS UA Ketones Negative *NA* (04/27/2011 18:50:00) Negative 04/28/2011 NA [facility] URINALYSIS UA Bili Negative *NA* (04/27/2011 18:50:00) Negative 04/28/2011 NA [place] URINALYSIS UA Protein Negative (04/27/2011 18:50:00) Negative 04/28/2011 Normal [facility] URINALYSIS UA pH 7.5 5.0 - 8.0 04/28/2011 Normal [facility] URINALYSIS UA Glucose Negative (04/27/2011 18:50:00) Negative 04/28/2011 Normal [facility] URINALYSIS UA Turbidity Cloudy *ABN* (04/27/2011 18:50:00) Clear 04/28/2011 ABN [place] URINALYSIS UA Color Yellow *NA* (04/27/2011 18:50:00) Yellow 04/28/2011 NA [facility] URINALYSIS UA Spec Grav 1.015 <=1.030 04/28/2011 Normal [facility] CHEMISTRY Globulin 3.9 2.0 - 4.0 04/27/2011 Normal [facility] CHEMISTRY A/G Ratio 1.1 0.7 - 1.6 04/27/2011 Normal [facility] CHEMISTRY AGAP 12.6 10.0 - 20.0 04/27/2011 Normal [facility] CHEMISTRY B/C Ratio 17 6 - 25 04/27/2011 Normal [facility] CHEMISTRY Total Protein 8.1 6.4 - 8.4 04/27/2011 Normal [facility] CHEMISTRY Albumin Lvl 4.2 3.5 - 5.0 04/27/2011 Normal [facility] CHEMISTRY CO2 25 24 - 32 04/27/2011 Normal [facility] CHEMISTRY Calcium Lvl 8.5 8.5 - 10.5 04/27/2011 Normal [facility] CHEMISTRY ALT 22 0 - 65 04/27/2011 Normal [facility] CHEMISTRY Alk Phos 92 39 - 136 04/27/2011 Normal [facility] CHEMISTRY Sodium Lvl 138 135 - 145 04/27/2011 Normal [facility] CHEMISTRY Potassium Lvl 3.6 3.5 - 5.1 04/27/2011 Normal [facility] CHEMISTRY Creatinine Lvl 0.9 0.5 - 1.4 04/27/2011 Normal [facility] CHEMISTRY Chloride Lvl 104 95 - 109 04/27/2011 Normal [facility] CHEMISTRY Bili Total 0.3 0.2 - 1.3 04/27/2011 Normal [facility] CHEMISTRY AST 16 0 - 37 04/27/2011 Normal [facility] CHEMISTRY Glucose Lvl 124 04/27/2011 NA <sup>1</sup>Interpretive Data: Reference Ranges : 0 - 7 days : 41 - 90 mg/dL 7 days - 150 yrs : 70 - 99 mg/dL (fasting), based on the clinical recommendations of the [place] [employer]. [facility] CHEMISTRY BUN 15 7 - 22 04/27/2011 Normal [facility] CHEMISTRY Lipase Lvl 184 73 - 393 04/27/2011 Normal [facility] HEMATOLOGY Hct 40.7 36.0 - 48.0 04/27/2011 Normal [facility] HEMATOLOGY RBC 4.59 4.20 - 5.40 04/27/2011 Normal [facility] HEMATOLOGY MCV 88.5 81.0 - 99.0 04/27/2011 Normal [facility] HEMATOLOGY Hgb 13.5 12.0 - 16.0 04/27/2011 Normal [facility] HEMATOLOGY MCHC 33.1 32.0 - 36.0 04/27/2011 Normal [facility] HEMATOLOGY MCH 29.3 27.0 - 31.0 04/27/2011 Normal [facility] HEMATOLOGY RDW 13.7 11.5 - 14.5 04/27/2011 Normal [facility] HEMATOLOGY Platelet 246 133 - 450 04/27/2011 Normal [facility] HEMATOLOGY MPV 10.2 7.4 - 10.4 04/27/2011 Normal [facility] HEMATOLOGY WBC 18.6 3.7 - 10.4 04/27/2011 [place] [facility] HEMATOLOGY RBC Morph Normal (04/27/2011 15:45:00) 04/27/2011 Normal [facility] HEMATOLOGY Plt Morph Normal (04/27/2011 15:45:00) 04/27/2011 Normal [facility] HEMATOLOGY Monocytes 4.3 2.0 - 12.0 04/27/2011 Normal [facility] HEMATOLOGY Segs 91.0 45.0 - 75.0 04/27/2011 [facility] HEMATOLOGY Lymphocytes 4.6 20.0 - 40.0 04/27/2011 LOW [facility] HEMATOLOGY Lymphocytes # 0.9 1.0 - 5.5 04/27/2011 LOW [facility] HEMATOLOGY Monocytes # 0.8 0.0 - 0.8 04/27/2011 Normal [facility] HEMATOLOGY Segs-Bands # 16.9 1.5 - 8.1 04/27/2011 [facility] HEMATOLOGY Eosinophils 0.1 0.0 - 4.0 04/27/2011 Normal [facility] HEMATOLOGY Basophils 0.0 0.0 - 1.0 04/27/2011 Normal [facility] HEMATOLOGY Basophils # 0.0 0.0 - 0.2 04/27/2011 Normal [facility] HEMATOLOGY Eosinophils # 0.0 0.0 - 0.5 04/27/2011 Normal [facility] CHEMISTRY U Preg Negative (03/01/2011 15:42:00) Negative 03/01/2011 Normal [facility] CHEMISTRY U Preg Negative (02/12/2011 03:49:00) Negative 02/12/2011 Normal [facility] URINALYSIS UA Nitrite Positive *ABN* (02/12/2011 03:49:00) Negative 02/12/2011 ABN [facility] URINALYSIS UA Leuk Est Trace *ABN* (02/12/2011 03:49:00) Negative 02/12/2011 ABN [facility] URINALYSIS UA Urobilinogen 1.0 0.1 - 1.0 02/12/2011 Normal [facility] URINALYSIS UA Blood Large *ABN* (02/12/2011 03:49:00) Negative 02/12/2011 ABN [facility] URINALYSIS UA Bili Negative (02/12/2011 03:49:00) Negative 02/12/2011 Normal [facility] URINALYSIS UA Protein 100 mg/dL *ABN* (02/12/2011 03:49:00) Negative 02/12/2011 ABN [facility] URINALYSIS UA pH 7.0 5.0 - 8.0 02/12/2011 Normal [facility] URINALYSIS UA Glucose 100 mg/dL *ABN* (02/12/2011 03:49:00) Negative 02/12/2011 ABN [facility] URINALYSIS UA Spec Grav 1.025 <=1.030 02/12/2011 Normal [facility] URINALYSIS UA Ketones Negative *NA* (02/12/2011 03:49:00) Negative 02/12/2011 NA [facility] URINALYSIS UA Turbidity Turbid *ABN* (02/12/2011 03:49:00) Clear 02/12/2011 ABN [facility] URINALYSIS UA Color Yellow *NA* (02/12/2011 03:49:00) Yellow 02/12/2011 NA [facility] URINALYSIS UA Bacteria Few /HPF (02/12/2011 03:49:00) None Seen 02/12/2011 Normal [facility] URINALYSIS UA RBC >100 /HPF *ABN* (02/12/2011 03:49:00) 0 - 2 02/12/2011 ABN [facility] URINALYSIS UA WBC 3-5 /HPF (02/12/2011 03:49:00) None Seen 02/12/2011 Normal [facility] URINALYSIS UA Sq Epi Few /LPF (02/12/2011 03:49:00) Few 02/12/2011 Normal [facility] URINALYSIS Micro? Performed (02/12/2011 03:49:00) 02/12/2011 Normal [facility] Microbiology Culture: Urine 02/12/2011 [facility] CHEMISTRY AST 17 0 - 37 02/12/2011 Normal [facility] CHEMISTRY Bili Total 0.3 0.2 - 1.3 02/12/2011 Normal [facility] CHEMISTRY Alk Phos 76 39 - 136 02/12/2011 Normal [facility] CHEMISTRY ALT 24 0 - 65 02/12/2011 Normal [facility] CHEMISTRY Albumin Lvl 3.8 3.5 - 5.0 02/12/2011 Normal [facility] CHEMISTRY Calcium Lvl 8.6 8.5 - 10.5 02/12/2011 Normal [facility] CHEMISTRY Chloride Lvl 102 95 - 109 02/12/2011 Normal [facility] CHEMISTRY Total Protein 7.5 6.4 - 8.4 02/12/2011 Normal [facility] CHEMISTRY CO2 24 24 - 32 02/12/2011 Normal [facility] CHEMISTRY Sodium Lvl 138 135 - 145 02/12/2011 Normal [facility] CHEMISTRY Potassium Lvl 3.7 3.5 - 5.1 02/12/2011 Normal [facility] CHEMISTRY Creatinine Lvl 0.7 0.5 - 1.4 02/12/2011 Normal [facility] CHEMISTRY BUN 10 7 - 22 02/12/2011 Normal [facility] CHEMISTRY Glucose Lvl 119 02/12/2011 NA <sup>1</sup>Interpretive Data: Reference Ranges : 0 - 7 days : 41 - 90 mg/dL 7 days - 150 yrs : 70 - 99 mg/dL (fasting), based on the clinical recommendations of the [place] [employer]. [facility] CHEMISTRY Globulin 3.7 2.0 - 4.0 02/12/2011 Normal [facility] CHEMISTRY AGAP 15.7 10.0 - 20.0 02/12/2011 Normal [facility] CHEMISTRY A/G Ratio 1.0 0.7 - 1.6 [...] Segs-Bands # 9.6 1.5 - 8.1 02/12/2011 [facility] HEMATOLOGY Lymphocytes # 1.7 1.0 - 5.5 02/12/2011 Normal [facility] HEMATOLOGY Monocytes # 1.0 0.0 - 0.8 02/12/2011 [facility] HEMATOLOGY Eosinophils # 0.2 0.0 - 0.5 02/12/2011 Normal [facility] HEMATOLOGY MCH 30.2 27.0 - 31.0 02/12/2011 Normal [facility] HEMATOLOGY MCHC 34.7 32.0 - 36.0 02/12/2011 Normal [facility] HEMATOLOGY RDW 13.8 11.5 - 14.5 02/12/2011 Normal [facility] HEMATOLOGY Platelet 242 133 - 450 02/12/2011 Normal [facility] HEMATOLOGY MPV 10.2 7.4 - 10.4 02/12/2011 Normal [facility] HEMATOLOGY Hgb 13.2 12.0 - 16.0 02/12/2011 Normal [facility] HEMATOLOGY Hct 38.1 36.0 - 48.0 02/12/2011 Normal [facility] HEMATOLOGY MCV 87.1 81.0 - 99.0 02/12/2011 Normal [facility] HEMATOLOGY WBC 12.6 3.7 - 10.4 02/12/2011 HI [facility] HEMATOLOGY RBC 4.38 4.20 - 5.40 02/12/2011 Normal [facility] CHEMISTRY U Preg Negative (12/09/2010 05:30:00) ?? >Negative 12/09/2010 Normal [facility] CHEMISTRY S Preg Negative *NA* (12/02/2010 11:20:00) ?? >Negative 12/02/2010 NA [facility] CHEMISTRY AGAP 11.3 10.0 - 20.0 12/02/2010 Normal [facility] CHEMISTRY Calcium Lvl 8.8 8.5 - 10.5 12/02/2010 Normal [facility] CHEMISTRY CO2 28.0 24 - 32 12/02/2010 Normal [facility] CHEMISTRY Glucose Lvl 42.0 12/02/2010 NA <sup>1</sup>Interpretive Data: Reference Ranges : 0 - 7 days : 41 - 90 mg/dL 7 days - 150 yrs : 70 - 99 mg/dL (fasting), based on the clinical recommendations of the [place] [employer]. [facility] CHEMISTRY Potassium Lvl 4.3 3.5 - 5.1 12/02/2010 Normal [facility] CHEMISTRY Chloride Lvl 103.0 95 - 109 12/02/2010 Normal [facility] CHEMISTRY BUN 18.0 7 - 22 12/02/2010 Normal [facility] CHEMISTRY Creatinine Lvl 0.7 0.5 - 1.4 12/02/2010 Normal [facility] CHEMISTRY Sodium Lvl 138.0 135 - 145 12/02/2010 Normal [facility] HEMATOLOGY PT 13.2 12.0 - 14.7 12/02/2010 Normal [facility] HEMATOLOGY INR 1.0 0.85 - 1.17 12/02/2010 Normal <sup>2</sup>Interpretive Data: RECOMMENDED RANGES FOR PROTIME INR: 2.0-3.0 for most medical and surgical thromboembolic states. 2.5-3.5 for artificial heart valves and recurrent embolism. INR SHOULD BE USED ONLY FOR PATIENTS ON STABLE ANTICOAGULANT THERAPY. [facility] HEMATOLOGY PTT 31.6 22.9 - 35.8 12/02/2010 Normal <sup>3</sup>Interpretive Data: Heparin Therapeutic Range: 57 - 92 Seconds [facility] HEMATOLOGY WBC 6.0 3.7 - 10.4 12/02/2010 Normal [facility] HEMATOLOGY MPV 10.6 7.4 - 10.4 12/02/2010 [facility] HEMATOLOGY MCH 30.0 27.0 - 31.0 12/02/2010 Normal [facility] HEMATOLOGY MCHC 34.5 32.0 - 36.0 12/02/2010 Normal [facility] HEMATOLOGY Platelet 249.0 133 - 450 12/02/2010 Normal [facility] HEMATOLOGY RDW 13.5 11.5 - 14.5 12/02/2010 Normal [facility] HEMATOLOGY Hgb 13.9 12.0 - 16.0 12/02/2010 Normal [facility] HEMATOLOGY RBC 4.62 4.20 - 5.40 12/02/2010 Normal [facility] HEMATOLOGY Hct 40.2 36.0 - 48.0 12/02/2010 Normal [facility] HEMATOLOGY MCV 87.0 81.0 - 99.0 12/02/2010 Normal [facility] HEMATOLOGY Eosinophils # 0.2 0.0 - 0.5 12/02/2010 Normal [facility] HEMATOLOGY Basophils # 0.1 0.0 - 0.2 12/02/2010 Normal [facility] HEMATOLOGY Monocytes # 0.6 0.0 - 0.8 12/02/2010 Normal [facility] HEMATOLOGY Lymphocytes # 1.5 1.0 - 5.5 12/02/2010 Normal [facility] HEMATOLOGY Segs-Bands # 3.7 1.5 - 8.1 12/02/2010 Normal [facility] HEMATOLOGY Monocytes 10.8 2.0 - 12.0 12/02/2010 Normal [facility] HEMATOLOGY Segs 61.5 45.0 - 75.0 12/02/2010 Normal [facility] HEMATOLOGY Basophils 0.9 0.0 - 1.0 12/02/2010 Normal [facility] HEMATOLOGY Lymphocytes 24.2 20.0 - 40.0 12/02/2010 Normal [facility] HEMATOLOGY Eosinophils 2.6 0.0 - 4.0 12/02/2010 Normal [facility] URINALYSIS UA RBC None Seen (12/02/2010 11:05:00) [...] Negative (12/02/2010 11:05:00) ?? >Negative 12/02/2010 Normal [facility] URINALYSIS UA Urobilinogen 0.2 0.1 - 1.0 [...] NA [facility] Microbiology Culture: Urine 12/02/2010 [facility] Pathology Reports No Data Provided for This [...] in the midline which appears horizontally oriented. [id number] 06/21/2016 [facility] Spine cervical wo contrast MRI CERVICAL SPINE [...] and minimal annular tearing. This results in [id number] left canal stenosis (AP diameter 8 mm) with moderate left lateral recess narrowing and mild left greater than right neural foraminal narrowing. There is slight contact to the left anterior cord and minimal deformity to the left C6 nerve root. C6-C7: Minimal disc bulge. No significant stenosis. C7-T1: No abnormality. IMPRESSION: Moderate C5-C6 disc extrusion with superimposed disc osteophyte complexes resulting in [id number] left canal stenosis and minimal deformity of the left C6 nerve root in the lateral recess and foramen. 09/11/2015 [facility] [place] Brain wo contrast MRI MRI BRAIN WITHOUT [...] Value Date Comments Source Weight 69.602 04/18/2018 [facility] BMI Calculated 26.34 04/18/2018 [facility] Height 162.56 cm 04/18/2018 [facility] Systolic (mm Hg) 114 04/18/2018 [facility] Diastolic (mm Hg) 77 04/18/2018 [facility] Heart Rate 80 04/18/2018 [facility] Systolic (mm Hg) 132 04/28/2011 [facility] Diastolic (mm Hg) 85 04/28/2011 [facility] Heart Rate 87 04/28/2011 [facility] Respitory Rate 18 04/28/2011 [facility] Temperature Oral (F) 97.5 F 04/28/2011 [facility] Systolic (mm Hg) 136 04/28/2011 [facility] Diastolic (mm Hg) 86 04/28/2011 [facility] Respitory Rate 18 04/28/2011 [facility] Diastolic (mm Hg) 91 04/28/2011 [facility] Systolic (mm Hg) 136 04/28/2011 [facility] Respitory Rate 14 04/28/2011 [facility] Heart Rate 80 04/28/2011 [facility] Temperature Oral (F) 98.0 F 04/28/2011 [facility] Heart Rate 79 04/28/2011 [facility] Temperature Oral (F) 98.3 F 04/28/2011 [facility] Height 162.56 cm 04/28/2011 [facility] Weight 63.636 04/28/2011 [facility] Heart Rate 75 02/12/2011 [facility] Diastolic (mm Hg) 83 02/12/2011 [facility] Systolic (mm Hg) 129 02/12/2011 [facility] Respitory Rate 20 02/12/2011 [facility] Temperature Oral (F) 98.5 F 02/12/2011 [facility] Temperature Oral (F) 98.1 F 02/12/2011 [facility] Systolic (mm Hg) 142 02/12/2011 [facility] Respitory Rate 20 02/12/2011 [facility] Diastolic (mm Hg) 92 02/12/2011 [facility] Heart Rate 84 02/12/2011 [facility] Systolic (mm Hg) 130 02/12/2011 [facility] Respitory Rate 13 02/12/2011 [facility] Diastolic (mm Hg) 71 02/12/2011 [facility] Heart Rate 74 02/12/2011 [facility] Temperature Oral (F) 98.0 F 02/12/2011 [facility] [...] 12/09/2010 [facility] Systolic (mm Hg) 115.0 12/09/2010 [facility] Heart Rate 86.0 12/09/2010 [facility] Temperature Oral (F) 97.8 F 12/02/2010 [facility] Heart Rate 88.0 12/02/2010 [facility] Weight 63.636 12/02/2010 [facility] Height 162.56 cm 12/02/2010 [facility] Encounters Location Location Details Encounter Type Encounter Number Reason For Visit Attending Provider ADM Date DC Date Status Source [facility] DS [id number] RENAL STONE, LT 592.0/CPT 29149 SHAN COTTOEN 12/09/2010 12/09/2010 Active [facility] OU [id number] RENAL COLIC, HYDRONEPHROSIS JUAN A JOSE 02/12/2011 02/12/2011 Active [facility] Outpatient [id number] RENAL JUAN A JOSE 03/01/2011 Active [facility] Outpatient [id number] KIDNEY STONEWITH MAHOGANY. JUAN A JOSE 03/16/2011 03/16/2011 Active [facility] Inpatient [id number] INTRACTABLE PAIN, ANOREXIA, NAUSEA, ACUTE HYDRONEPROSIS LAURA ÁLVAREZ 04/28/2011 04/28/2011 Active [facility] Outpatient [id number] 592.0 JUAN A SHERIDAN 05/11/2011 Active [facility] Outpatient [id number] STONES W/ TOMOS JUAN A SHERIDAN 07/28/2011 Active [facility] [place] [facility] [id number] Belkis Kofarida 09/11/2015 09/12/2015 [facility] [place] Outpatient [id number] EDEL DION 04/12/2016 Active [facility] Outpatient [id number] Juan A Jose 06/21/2016 06/22/2016 [facility] Outpatient [id number] EDEL DION 06/28/2016 Active [facility] Outpatient [id number] EDEL DION 11/24/2016 Active [facility] Outpatient [id number] EDEL DION 05/25/2017 Active [facility] Ambulatory Pre-Reg [id number] Edel [place] 05/25/2017 05/25/2017 [facility] Outpatient [id number] EDEL DION 04/18/2018 [facility] Outpatient [id number] Edel Dion 04/18/2018 04/19/2018 [facility] Outpatient [id number] EDEL DION 04/19/2019 [facility] Outpatient [id number] KIDNEY STONESKUB W/MAHOGANY JUAN A JOSE Cancel [facility] Procedures Procedure Code Date Perfomer Comments Source Open stone operation on kidney or renal pelvis [id number] 02/21/2008 [facility] Assessment and Plan No Data Provided for [...] Cessation Counseling No entered on: 04/18/18 11/24/2016 [facility] Social History TypeResponse Employment/School Status: Employed. Highest education level: High school. Alcohol Never Smoking Status Never smoker; Exposure to Tobacco Smoke None; Cigarette Smoking Last 365 Days No; Reg Smoking Cessation Counseling No 06/07/2016 [facility] No data available for this section 09/12/2015 [facility] [place] Family History No Data Provided for This Section Advance Directives No Data Provided for This Section Functional Status No Data Provided for This Section
--- NOTE | 2018-10-18 10:10 | NUR ---
RECEIVED PATIENT FROM PACU. PATIENT A/O X3, EVEN RESPIRATIONS ON RA. LUNG SOUNDS CLEAR TO AUSCULTATION. ANTERIOR NECK DRESSING CLEAN, DRY, AND INTACT. SOFT COLLAR IN PLACE. BOWEL SOUNDS X4. PATIENT HAS VOIDED SINCE SURGERY. RIGHT FA IV WITH LR @ 120 CC/HR. PATIENT AMBULATORY. KAYLN VASQUEZ AND SCD'S BILATERALLY. ORIENTED PATIENT TO ROOM AND CALL LIGHT. BED LOW, WHEELS LOCKED, SIDE RAILS X2. CALL LIGHT IN REACH WILL CONTINUE TO MONITOR PATIENT.
--- NOTE | 2018-10-18 10:14 | Operative Report ---
DATE OF PROCEDURE: 10/18/2018 SURGEON: Elier Jernigan MD PREOPERATIVE DIAGNOSIS: C5-C6 disk herniation and spondylosis with radiculopathy, M50.122. POSTOPERATIVE DIAGNOSIS: C5-C6 disk herniation and spondylosis with radiculopathy, M50.122. PROCEDURES: 1. C5-C6 anterior cervical diskectomy and microsurgical osteophyte resection and allograft fusion, 76992. 2. Preparation of MTF corticocancellous allograft, 15744. 3. C5-C6 anterior cervical plating with Synthes DPM plate, 13420. ANESTHESIA: General. INDICATIONS: The patient is a 38-year-old woman, who presents with C5-C6 spondylosis and disk herniation with intractable right C6 radiculopathy. She was taken to the operating room for anterior cervical decompression and fusion. PROCEDURE IN DETAIL: After induction of anesthesia, the patient was placed on the operating table in supine position. Right side of neck was prepped and draped in sterile fashion. The fluoroscopic C-arm was positioned in cross-table lateral orientation. A small transverse incision was created on the right side of neck, superimposed on the C5-C6 disk space as determined by fluoroscopy. The platysma was divided in line with the incision. A subplatysmal dissection was carried out and avascular plane of dissection was developed medially. Sternomastoid muscle was followed medial to the carotid sheath to the anterior border of cervical spine. The deep cervical fascia was opened. The esophagus was retracted to the left. The attachments of longus colli muscles to the anterolateral aspects of vertebral bodies of C5 and C6 were divided. The anterior longitudinal ligament was resected. Alborn posts were inserted into C5 and C6 and the Alborn distractor was used to distract the disk space. Anterior anulus of the disk was incised with a #11 blade. The contents of the disk were thoroughly evacuated with curettes and pituitary rongeurs. The posterior osteophytes were meticulously drilled with a 2 mm cutting bur until they were completely removed. The posterior annulus of the disk, herniated disk material, and the posterior longitudinal ligament were resected layer by layer until the dura was fully exposed and decompressed. The medial aspects of the uncinate processes were resected bilaterally with particular attention given to the right side. A significant amount of extruded disk material was retrieved and removed from the right C6 neuroforamen. Excellent decompression was thus achieved. The wound was irrigated with bacitracin solution. The disk space was sized and found to found to be 7 mm in height. A piece of MTF corticocancellous allograft measuring 7 mm in thickness was selected and prepared in saline and loaded onto a Synthes ZPN plate. The construct was inserted into the C5-C6 disk space under distraction and fluoroscopic guidance. The distraction was released and distraction posts were removed. The plate was screwed to the endplates of C5 and C6 with two pairs of 14 mm screws. All screws were locked and excellent construct was obtained. The wound was copiously irrigated with bacitracin solution. Meticulous hemostasis was secured. Retractor was removed. The platysma was closed with 3-0 Vicryl sutures. The skin was closed with 4-0 Vicryl sutures in subcuticular fashion. Steri-Strips and dressing were applied. The patient was awakened, extubated, and taken to postanesthesia care unit in stable condition. No intraoperative complications were encountered. Estimated blood loss was 10 mL. Elier Jernigan MD PP/JUSTO /[id number]
[2018-10-18] MEDS ORDERED: MORPHINE SULFATE INJ 4 MG/ML INJ 1ML IM PRN (10:15)
[2018-10-18] MEDS: LACTATED RINGER'S 1,000 ML IV SCH ×2 (10:55→16:46)
[2018-10-18] MEDS: OXYCODONE/ACETAMINOPHEN 5-325 1 EACH TABLET PO PRN (11:29)
[2018-10-18] MEDS: CARISOPRODOL 350 MG TAB PO PRN (11:30)
[2018-10-18] MEDS: CEFAZOLIN SOD 1 GM/NS 50ML 50 ML IV SCH ×2 (13:51→21:46)
[2018-10-18] MEDS: CARVEDILOL 12.5 MG TAB PO SCH (16:07)
[2018-10-18] MEDS: HYDROMORPHONE 2MG/ML 2 MG/ML ML IV PRN ×2 (16:25→21:46)
[2018-10-18] MEDS ORDERED: ONDANSETRON HCL INJ 2MG/ML 2ML 2 MG/ML VIAL ONE (18:46)
[2018-10-18] MEDS ORDERED: PROPOFOL IV EMULSION 10 MG/ML 20 ML VIAL ONE (18:46)
[2018-10-18] MEDS ORDERED: ROCURONIUM BROMIDE 10 MG/ML 5ML VIAL ONE (18:46)
[2018-10-18] MEDS ORDERED: LIDOCAINE HCL 2% JELLY 5 ML TUBE ONE (18:46)
[2018-10-18] MEDS ORDERED: DEXAMETHASONE SOD PHOS INJ 4 MG/ML VIAL ONE (18:46)
[2018-10-18] MEDS ORDERED: LIDOCAINE HCL 2% LOCAL INJ 5 ML SDV VIAL INJ ONE (18:46)
[2018-10-18] MEDS ORDERED: GLYCOPYRROLATE INJ 1MG/ 5 ML SYR ONE (18:46)
[2018-10-18] MEDS ORDERED: SEVOFLURANE INHAL SOLN 250 ML PEN BTL ONE (18:46)
[2018-10-18] MEDS ORDERED: NEOSTIGMINE 5 MG/5ML SYR ONE (18:46)
[2018-10-18] MEDS ORDERED: MIDAZOLAM HCL 2 MG/2 ML VIAL ONE (18:59)
--- NOTE | 2018-10-18 19:12 | NUR ---
received report, patient in stable condition, aaox4, no distress observed. no needs voiced at this time. instructed to call for assist. as needed, patient verbalized understanding.
[2018-10-19 00:25] VITALS: BP 107/59
[2018-10-19] MEDS: LACTATED RINGER'S 1,000 ML IV SCH ×2 (01:50→09:37)
[2018-10-19 04:08] VITALS: BP 104/60
[2018-10-19] MEDS: CEFAZOLIN SOD 1 GM/NS 50ML 50 ML IV SCH (06:07)
[2018-10-19] MEDS: CARISOPRODOL 350 MG TAB PO PRN (06:30)
[2018-10-19] MEDS: OXYCODONE/ACETAMINOPHEN 5-325 1 EACH TABLET PO PRN (06:30)
--- NOTE | 2018-10-19 07:01 | Diagnostic Imaging Report ---
Exam: Cervical spine 2 views History: Postsurgical Comparison: None. Findings: See impression Impression: The cervical spine is visualized from the skull base to the top of T1. No acute, displaced fracture or subluxation. Status post fusion and disc spacer placement at C5-6, with intact surgical hardware. Alignment is within normal limits. Prevertebral soft tissue thickening in keeping with recent surgery. Signed by: Dr. Ryan Rodriguez M.D. on 10/19/2018 6:58 AM
[2018-10-19] MEDS ORDERED: NORCO 7.5-3251 EACH PO (07:47)
[2018-10-19] MEDS: CARVEDILOL 12.5 MG TAB PO SCH (08:00)
[2018-10-19 08:01] VITALS: BP 91/55
[2018-10-19] MEDS ORDERED: SUMATRIPTAN SUCCINATE 25 MG TAB PO SCH (09:00)
[2018-10-19] MEDS ORDERED: NORTRIPTYLINE HCL 10 MG CAP PO SCH (09:00)
[2018-10-19 09:40] VITALS: BP 91/55
--- NOTE | 2018-10-19 10:39 | NUR ---
DISCHARGE INSTRUCTIONS REVIEWED WITH PT, VERBALIZED UNDERSTANDING, PT REMOVED OWN IV, NO BLEEDING NOTED, WHEELED OFF UNIT VIA WC FOR DISCHARGE, NO CHANGE IN CONDITION
== END 2018-10-19 10:40 | disposition home or self-care (01) ==
LOC: OR 05:30 → PACU V 09:11 → MED/SURG 10:37
PROVIDERS: ADMIT Neurological Surgery; ATTEND Neurological Surgery
DX: M50.122 Cervical disc disorder at C5-C6 level with radiculopathy (principal); M47.22 Other spondylosis with radiculopathy, cervical region
CPT/HCPCS: 20931; 22551; 22845; 36415; 71046; 72040; 80048; 81025; 85025; 85610; 85730; 86850; 86900; 88304; 93005; C1713 ×2; G0378 ×2; J0131; J0690 ×2; J1100; J1170; J2001 ×2; J2250; J2270; J2405; J2704; J3010; J3490; J7121; 77003; J2550